=== PATIENT | female | born 1930 | race Caucasian/White ===

== ENCOUNTER 2016-09-02 16:35 | Observation (INO) | payer MEDICARE, OTHER ==
[2016-09-02] MEDS ORDERED: Ondansetron 4 MG/2 ML SDV IVPUSH ONE (16:50)
[2016-09-02] MEDS ORDERED: Sodium Chloride 0.9% 10 ML Syringe FLUSH PRN (16:56)
[2016-09-02 17:37] LABS: CHLORIDE,CL 107 mmol/L (98-107); SODIUM,NA 142 mmol/L (136-145)
[2016-09-02] MEDS ORDERED: cefTRIAXone 1 GM Vial IVPUSH ONE (18:38)
[2016-09-02] MEDS ORDERED: Ondansetron 4 MG/2 ML SDV IVPUSH PRN (20:21)
[2016-09-02] MEDS ORDERED: Sodium Chloride 0.9% 1,000 ML IV ONE (20:21)
[2016-09-02] MEDS: Sodium Chloride 0.9% 1,000 ML IV ONE ×2 (20:44→20:52)
[2016-09-03] MEDS ORDERED: Acetaminophen 325 MG Tab PO PRN (00:56)
--- NOTE | 2016-09-03 01:57 | ER ---
Date of Service: 09/02/2016 SUBJECTIVE: Mrs. Rose presents to the emergency room with complaints of dizziness and near syncope that started approximately 2:30 p.m. this afternoon. She states that she did become nauseated and did vomit as well. She was seen in the clinic by RONALD Neal, who subsequently had the patient brought to the emergency room for evaluation and treatment. The patient states that she was feeling a bit fatigued throughout the day today. She states that she is currently not experiencing any chest pain or shortness of breath. She is accompanied to the emergency room by her daughter. PAST MEDICAL HISTORY: 1. Frequent UTI. 2. Syncope. 3. Dementia. MEDICATIONS: 1. Acetaminophen 650 mg q. 4 hours. 2. Aspirin 81 mg daily. 3. Calcium plus D 1250 mg/200 mg per tablet once daily. 4. Vitamin D3 1000 units p.o. daily. 5. Multivitamin/mineral 1 daily. 6. Crestor 10 mg daily. 7. Vitamin E 400 units p.o. daily. 8. Triamcinolone cream 0.1% applied to affected area daily. 9. Prolia 60 mg subcutaneously once per month. ALLERGIES: Penicillin and codeine. REVIEW OF SYSTEMS: General: No fever or chills. HEENT: No sore throat, rhinorrhea, or congestion. Respiratory: No shortness breath. Cardiac: Denies any substernal chest pain. No jaw, arm, neck, or back pain. GI: Positive for nausea and vomiting. Denies any diarrhea. No melena, hematochezia, or hematemesis. : Denies any dysuria. Musculoskeletal: No myalgias or arthralgias. Neurologic: No fainting, blackouts, lightheadedness. PHYSICAL EXAMINATION: General: This is an 86-year-old female patient, who is in no acute distress. Vital Signs: Blood pressure is 120/56, pulse rate is 57, temperature is 36.5, respiratory rate is 16, O2 saturations 98% on room air. Skin: Warm, pink, and dry. HEENT. Head is normocephalic, atraumatic. Mouth, oral mucosa is moist. Lungs: Clear to auscultation. Heart: Regular rate and rhythm. Abdomen: Soft, nontender. There is no hepatosplenomegaly noted. There is no masses noted. Extremities: Without edema. Neurologic: She is alert, oriented, answers all questions appropriately. Her speech is fluent. Her gait is within normal limits. IMAGING: Her PA and lateral chest x-ray was obtained. There was no evidence of any acute infiltrate. Flat and upright abdominal series was obtained. There was no evidence of any acute pathology. LABORATORY DATA: WBCs 5.5, hemoglobin is 12.1, platelets are 184. Coags: PT is 10.1, INR is 0.9. Chemistry: Sodium is 142, potassium is 3.6, chloride is 107, bicarb is 27, BUN is 20, creatinine is 0.7. GFR is greater than 60. Glucose is 113, lactic acid is 1.1, calcium is 9.2, corrected calcium is 9.36, total bilirubin is 0.4, AST is 14, ALT is 15, alkaline phosphatase is 52, troponin is less than 0.017. C-reactive protein is less than 0.2, total protein is 7.2. Urinalysis reveals specific gravity of 1.020. PH is 7.5. She did have moderate occult blood, positive nitrates, and small leukocyte esterase and many bacteria on her urinalysis. EMERGENCY ROOM COURSE: IV access was established. She was given a liter of normal saline IV and Zofran 4 mg IV for her nausea and vomiting. She was also given 1 g of ceftriaxone IV. She remained stable under my care in the emergency room. ASSESSMENT: 1. Urinary tract infection. 2. Acute dehydration. 3. Near syncope. PLAN: The patient is going to be admitted on observation status. I did speak with Dr. Siddiqui regarding this patient and he felt that as though the patient could be admitted on observation and will re-evaluate in the morning. The patient identifies herself as a code level 1, but does wish to be intubated in the event that she experiences respiratory distress or failure. We will start her on a regular diet and I utilized sequential compression devices. We will continue ceftriaxone 1 g daily for her urinary tract infection. We will continue normal saline at 100 mL per hour and Zofran 4 mg every 8 hours as needed for nausea and vomiting. Vitals q.4 hours. This can be used as the patient's H and P. MWK: 09/03/2016 01:27:32 MODL: 09/03/2016 01:53:04 /[id number]
[2016-09-03 07:59] LABS: CHLORIDE,CL 109 mmol/L (98-107); SODIUM,NA 137 mmol/L (136-145)
[2016-09-03] MEDS ORDERED: Aspirin 81 MG Tab.EC PO SCH (08:00)
[2016-09-03] MEDS ORDERED: atorvaSTATin 40 MG Tab PO SCH (08:00)
[2016-09-03] MEDS ORDERED: Multivitamins with Iron/Calcium/Folic Acid/Minerals Tab PO SCH (08:00)
[2016-09-03] MEDS ORDERED: Cholecalciferol (Vitamin D3) 1,000 Unit Tab PO SCH (08:00)
[2016-09-03] MEDS ORDERED: Calcium Carbonate/Vitamin D3 1250 MG-200 Unit Tab PO SCH (08:00)
[2016-09-03] MEDS ORDERED: Non-Formulary Medication 1 Each (Rosuvastatin [Crestor] 10 MG) PO SCH (08:00)
[2016-09-03] MEDS ORDERED: Vitamin E (dl-alpha-tocopherol acetate) 400 Unit Cap PO SCH (08:00)
--- NOTE | 2016-09-03 08:24 | PCM.DCSUM1 ---
[id number] AM. HPI Initial Comments: Patient was brought to the emergency room from the clinic with complaints of near sycope, nausea and vomiting. Her workup showed her to have a urinary tract infection and she was admitted in observation status for IV antibiotics. Urine was positive for blood, nitrates and leukocytes. - Discharge Data Discharge Date: 09/03/16 Discharge Disposition: Home, Self-Care 01 Condition: Good - Discharge Diagnosis/Problem(s) (1) Dehydration symptoms SNOMED Code(s): 7514804 ICD Code: R63.8 - OTHER SYMPTOMS AND SIGNS CONCERNING FOOD AND FLUID INTAKE Status: Acute Priority: Low (2) Near syncope SNOMED Code(s): 588314809 ICD Code: R55 - SYNCOPE AND COLLAPSE Status: Acute Priority: Low (3) UTI (urinary tract infection) SNOMED Code(s): 03745117 ICD Code: N39.0 - URINARY TRACT INFECTION, SITE NOT SPECIFIED Status: Acute Priority: Medium Qualifiers: Urinary tract infection type: site unspecified Hematuria presence: with hematuria Qualified Code(s): N39.0 - Urinary tract infection, site not specified; R31.9 - Hematuria, unspecified - Patient Instructions Diet: Usual Diet as Tolerated, Drink 8-10+ Glasses/Day Notify Provider of: Fever, Increased Pain, Nausea and/or Vomiting - Discharge Plan Prescriptions/Med Rec: Nitrofurantoin Monohyd/M-Cryst [Macrobid 100 mg Capsule] 100 mg PO BID #10 capsule Home Medications: Home Meds Aspirin [Halfprin] 81 mg PO DAILY 12/14/13 [History] Multivitamin [Multivitamins] 1 tab PO DAILY 12/14/13 [History] Rosuvastatin [Crestor] 10 mg PO DAILY 12/14/13 [History] Triamcinolone Acetonide [Kenalog 0.1% Lotion] 1 applic TOP DAILY 12/14/13 [ History] Vitamin E 400 units PO DAILY 12/14/13 [History] Acetaminophen [Tylenol] 650 mg PO Q4H PRN #30 tablet 12/16/13 [Rx] Calcium Citrate/Vitamin D3 [Citracal-Vit D 250 MG-200] 1 each PO DAILY 09/02/16 [History] Cholecalciferol (Vitamin D3) [Vitamin D3] 1,000 unit PO DAILY 09/02/16 [History] Denosumab [Prolia] 60 mg SUBCUT ONETIME 09/02/16 [History] Nitrofurantoin Monohyd/M-Cryst [Macrobid 100 mg Capsule] 100 mg PO BID #10 capsule 09/03/16 [Rx] Patient Handouts: Urinary Tract Infection, Adult, [id number] Forms: ED Department Discharge Referrals: Reina Zimmer MD [Primary Care Provider] - - Discharge Summary/Plan Comment DC Time >30 min.: Yes Discharge Summary/Plan Comment: Follow up with your primary provider in 1 week to be sure the infection is resolved You need to be more hydrated, it may be beneficial to invest in a commode in your downstairs so that you don't need to worry about running upstairs If you have additional symptoms please see your primary provider I am sending you home with a prescription for macrobid. Take this orally 2 times a day for 5 days Please call with any questions or concerns - General Info Date of Service: 09/03/16 Functional Status: Reports: tolerating diet, urinating. Denies: new symptoms - Review of Systems General: Reports: No Symptoms HEENT: Reports: no symptoms Pulmonary: Reports: no symptoms Cardiovascular: Reports: No Symptoms Gastrointestinal: Reports: No symptoms Genitourinary: Reports: no symptoms Musculoskeletal: Reports: no symptoms Skin: Reports: no symptoms Neurological: Reports: No Symptoms Psychiatric: Reports: no symptoms - Patient Data Vitals - Most Recent: Last Vital Signs Temp 36.8 C 09/03/16 06:00 Pulse 54 L 09/03/16 06:00 Resp 9 L 09/03/16 06:00 BP 119/47 L 09/03/16 06:00 Pulse Ox 99 09/03/16 06:00 Weight - Most Recent: 56.109 kg I&O - Last 24 hours: Intake & Output 09/02/16 09/03/16 09/03/16 22:59 06:59 14:59 Intake Total 846 Output Total 600 Balance 246 Lab Results - Last 24 hrs: Laboratory Results - last 24 hr 09/03/16 09/03/16 Range/Units 07:29 07:29 WBC 5.6 (4.0-10.0) x10^3/uL RBC 3.47 L (4.00-5.50) x10^6/uL Hgb 10.8 L (12.0-16.0) g/dL Hct 30.8 L (33.0-47.0) % MCV 88.8 (78.0-93.0) fL MCH 31.1 (26.0-32.0) pg MCHC 35.1 (32.0-36.0) g/dL RDW Coeff of [place] 12.8 (10.0-15.0) % Plt Count 167 (130-400) x10^3/uL Neut % (Auto) 69.0 (50.0-80.0) % Lymph % (Auto) 22.3 L (25.0-50.0) % [place] % (Auto) 7.8 (2.0-11.0) % Eos % (Auto) 0.7 (0.0-4.0) % Baso % (Auto) 0.2 (0.2-1.2) % Sodium 137 (136-145) mmol/L Potassium 3.7 (3.5-5.1) mmol/L Chloride 109 H (98-107) mmol/L Carbon Dioxide 24 (21-32) mmol/L BUN 13 (7-18) mg/dL Creatinine 0.7 (0.55-1.02) mg/dL Est Cr Clr Drug Dosing 43.53 mL/min Estimated GFR (MDRD) > 60 Glucose 90 (74-106) mg/dL Calcium 8.2 L (8.5-10.1) mg/dL Corrected Calcium 8.92 (8.5-10.1) mg/dL Total Bilirubin 0.3 (0.2-1.0) mg/dL AST 14 L (15-37) U/L ALT 12 L (14-59) U/L Alkaline Phosphatase 45 L (46-116) U/L Troponin I < 0.017 (<=0.056) ng/mL Total Protein 6.0 L (6.4-8.2) g/dL Albumin 3.1 L (3.4-5.0) g/dL Globulin 2.9 Albumin/Globulin Ratio 1.07 Med Orders - Current: Current Medications Acetaminophen (Tylenol) 650 mg PO Q4H PRN PRN Reason: Pain Aspirin (Halfprin) 81 mg PO DAILY [facility] Last Admin: 09/03/16 07:32 Dose: 81 mg Atorvastatin Calcium (Lipitor) 40 mg PO DAILY [facility] Last Admin: 09/03/16 07:32 Dose: 40 mg Calcium Carbonate (Calcium Carbonate/Vitamin D 1250 Mg-200 Unit) 1 tab PO DAILY [facility] Last Admin: 09/03/16 07:32 Dose: 1 tab Cholecalciferol (Vitamin D3) 1,000 units PO DAILY [facility] Last Admin: 09/03/16 07:32 Dose: 1,000 units Multivitamins/Minerals (Thera M Plus) 1 tab PO DAILY [facility] Last Admin: 09/03/16 07:32 Dose: 1 tab Ondansetron HCl (Zofran) 4 mg IVPUSH Q8H PRN PRN Reason: Nausea Sodium Chloride (Saline Flush) 10 ml FLUSH ASDIRECTED PRN PRN Reason: Keep Vein Open Last Admin: 09/02/16 19:20 Dose: 10 ml Vitamin E (Vitamin E) 400 units PO DAILY [facility] Last Admin: 09/03/16 07:32 Dose: 400 units Discontinued Medications Ceftriaxone Sodium (Rocephin) 1 gm IVPUSH ONETIME ONE Stop: 09/02/16 18:39 Last Admin: 09/02/16 19:20 Dose: 1 gm Sodium Chloride (Normal Saline) 1,000 mls @ 1,000 mls/hr IV .BOLUS ONE Stop: 09/02/16 17:56 Last Admin: 09/02/16 20:52 Dose: 100 mls/hr Sodium Chloride (Normal Saline) 1,000 mls @ 100 mls/hr IV .BOLUS ONE Stop: 09/03/16 06:20 Last Admin: 09/02/16 20:52 Dose: 100 mls/hr Ondansetron HCl (Zofran) 4 mg IVPUSH ONETIME ONE Stop: 09/02/16 16:51 Last Admin: 09/02/16 16:55 Dose: 4 mg - Exam General: Reports: alert, oriented, cooperative, no acute distress HEENT: Reports: Pupils equal, Pupils reactive, EOMI Neck: Reports: supple Lungs: Reports: Clear to auscultation, Normal respiratory effort Cardiovascular: Reports: Regular Rate, Regular Rhythm Abdomen: Reports: bowel sounds present, soft, no tenderness, no distension Extremities: Reports: no edema Skin: Reports: warm, dry, intact Neurological: Reports: no new focal deficit Psy/Mental Status: Reports: alert, normal affect, normal mood *Q Meaningful Use (DIS) - VTE *Q VTE Criteria *Q: - Stroke *Q Stroke Criteria *Q: - AMI *Q AMI Criteria *Q:
[2016-09-03 09:44] VITALS: BP 137/57
== END 2016-09-03 10:30 | disposition home or self-care (01) ==
LOC: VM.ED 16:35 → VM.MS 18:41
PROVIDERS: ADMIT Physician Assistant; ATTEND Physician Assistant
DX: E86.0 Dehydration (principal); N39.0 Urinary tract infection, site not specified; F03.90 Unspecified dementia, unspecified severity, without behavioral disturbance, psychotic disturbance, mood disturbance, and anxiety; Z79.82 Long term (current) use of aspirin; Z79.899 Other long term (current) drug therapy; Z88.0 Allergy status to penicillin; Z88.5 Allergy status to narcotic agent
CPT/HCPCS: 36415; 74020; 80053; 81001; 83605; 84484; 85025; 85610; 86140; 87086; 87088; 87186; 93005; 96361; 96374; 96375; 99285; A9270; G0378; J0696; J2405; J7030; J7050; 99217; 99220

== ENCOUNTER 2018-05-26 13:51 | Observation (INO) | payer MEDICARE, OTHER ==
[2018-05-26] MEDS ORDERED: Sodium Chloride 0.9% 1,000 ML IV ONE (13:53)
[2018-05-26] MEDS ORDERED: cefTRIAXone 1 GM Vial IVPUSH ONE (13:58)
[2018-05-26] MEDS ORDERED: Ondansetron 4 MG/2 ML SDV IVPUSH ONE (13:59)
--- NOTE | 2018-05-26 14:08 | EDM.PDOC ---
ED HPI GENERAL MEDICAL PROBLEM - General Chief Complaint: General Stated Complaint: WEAK, DEHYDRATED, NO APPITITE Time Seen by Provider: 05/26/18 13:51 Source of Information: Reports: Patient, EMS, EMS Notes Reviewed, Family, RN History Limitations: Reports: No Limitations - History of Present Illness INITIAL COMMENTS - FREE TEXT/NARRATIVE: Patient comes in the emergency department with EMS with complaints of weakness and nausea. Patient was just started on Aricept and Bactrim yesterday. Since starting the medication she's had extreme nausea and vomiting. She is unable to keep any fluids or food down. She states that she still has her UTI symptoms. Any fever and chills. Quality: Reports: Other Severity: Moderate Improves with: Reports: None Worsens with: Reports: None Associated Symptoms: Reports: No Other Symptoms - Related Data Allergies Allergy/AdvReac Type Severity Reaction Status Date / Time codeine Allergy Cannot Verified 05/26/18 14:49 Remember Penicillins Allergy Hives Verified 05/26/18 14:49 Home Meds: Home Meds Aspirin [Halfprin] 81 mg PO DAILY 12/14/13 [History] Multivitamin [Multivitamins] 1 tab PO DAILY 12/14/13 [History] Rosuvastatin [Crestor] 10 mg PO DAILY 12/14/13 [History] Acetaminophen [Tylenol] 650 mg PO Q4H PRN #30 tablet 12/16/13 [Rx] Calcium Citrate/Vitamin D3 [Citracal-Vit D 250 MG-200] 1 each PO DAILY 09/02/16 [History] Cholecalciferol (Vitamin D3) [Vitamin D3] 1,000 unit PO DAILY 09/02/16 [History] Denosumab [Prolia] 60 mg SUBCUT ONETIME 09/02/16 [History] Albuterol Sulfate [Albuterol Sulfate Hfa] 2 puff IH Q4H PRN 05/26/18 [History] Donepezil HCl [Aricept] 5 mg PO DAILY 05/26/18 [History] Sulfamethoxazole/Trimethoprim [Bactrim 400-80 MG] 1 each PO BID 05/26/18 [ History] Past Medical History Cardiovascular History: Reports: Syncope Genitourinary History: Reports: Other (See Below) Other Genitourinary History: UTI Musculoskeletal History: Reports: Other (See Below) Other Musculoskeletal History: Left wrist fracture history Neurological History: Reports: Other (See Below) Other Neuro History: dementia Social & Family History - Living Situation & Occupation Living situation: Reports: Alone Occupation: Retired ED ROS GENERAL - Review of Systems Review Of Systems: See Below Constitutional: Reports: Malaise, Weakness, Fatigue HEENT: Reports: No Symptoms Respiratory: Reports: No Symptoms Cardiovascular: Reports: No Symptoms Endocrine: Reports: No Symptoms GI/Abdominal: Reports: Abdominal Pain, Nausea, Vomiting : Reports: Dysuria, Frequency, Pain, Urgency Musculoskeletal: Reports: No Symptoms Skin: Reports: No Symptoms Neurological: Reports: No Symptoms Psychiatric: Reports: No Symptoms Hematologic/Lymphatic: Reports: No Symptoms Immunologic: Reports: No Symptoms ED EXAM, GENERAL - Physical Exam Exam: See Below Exam Limited By: No Limitations General Appearance: Alert, WD/WN, No Apparent Distress Head: Atraumatic, Normocephalic Neck: Normal Inspection, Supple, Non-Tender, Full Range of Motion Respiratory/Chest: No Respiratory Distress, Lungs Clear, Normal Breath Sounds, No Accessory Muscle Use, Chest Non-Tender Cardiovascular: Normal Peripheral Pulses, Regular Rate, Rhythm, No Edema GI/Abdominal: Normal Bowel Sounds, Soft, No Organomegaly, No Distention, No Abnormal Bruit, No Mass, Pelvis Stable, Tender Back Exam: Normal Inspection, Full Range of Motion Extremities: Normal Inspection, Normal Range of Motion, Normal Capillary Refill Neurological: Alert, Oriented Psychiatric: Normal Affect, Normal Mood Skin Exam: Warm, Dry, Intact, Normal Color, No Rash Course - Vital Signs Last Recorded V/S: Last Vital Signs Temp 36.4 C 05/26/18 14:00 Pulse 79 05/26/18 15:00 Resp 16 05/26/18 15:00 BP 156/78 H 05/26/18 15:53 Pulse Ox 98 05/26/18 15:00 - Orders/Labs/Meds Labs: Laboratory Tests 05/26/18 05/26/18 05/26/18 Range/Units 15:49 15:49 15:49 WBC 8.3 (4.0-10.0) x10^3/uL RBC 4.27 (4.00-5.50) x10^6/uL Hgb 13.1 D (12.0-16.0) g/dL Hct 38.6 (33.0-47.0) % MCV 90.4 (78.0-93.0) fL MCH 30.7 (26.0-32.0) pg MCHC 33.9 (32.0-36.0) g/dL RDW Coeff of [place] 12.9 (10.0-15.0) % Plt Count 207 (130-400) x10^3/uL Neut % (Auto) 87.6 H (50.0-80.0) % Lymph % (Auto) 7.8 L (25.0-50.0) % [place] % (Auto) 4.3 (2.0-11.0) % Eos % (Auto) 0.1 (0.0-4.0) % Baso % (Auto) 0.2 (0.2-1.2) % Sodium 141 (136-145) mmol/L Potassium 3.7 (3.5-5.1) mmol/L Chloride 105 (98-107) mmol/L Carbon Dioxide 24 (21-32) mmol/L Anion Gap 15.7 (10-20) mmol/L BUN 14 (7-18) mg/dL Creatinine 0.8 (0.55-1.02) mg/dL Est Cr Clr Drug Dosing 37.38 mL/min Estimated GFR (MDRD) > 60 Glucose 103 (74-106) mg/dL Lactic Acid 1.3 (0.4-2.0) mmol/L Calcium 8.5 (8.5-10.1) mg/dL Corrected Calcium 8.90 (8.5-10.1) mg/dL Total Bilirubin 0.4 (0.2-1.0) mg/dL AST 15 (15-37) U/L ALT 14 (14-59) U/L Alkaline Phosphatase 65 (46-116) U/L Total Protein 6.9 (6.4-8.2) g/dL Albumin 3.5 (3.4-5.0) g/dL Globulin 3.4 Albumin/Globulin Ratio 1.03 Meds: Medications Discontinued Medications Generic Name Dose Route Start Last Admin Trade Name Freq PRN Reason Stop Dose Admin Ceftriaxone Sodium 1 gm 05/26/18 13:58 05/26/18 14:10 Rocephin IVPUSH 05/26/18 13:59 1 gm ONETIME ONE Administration Sodium Chloride 1,000 mls @ 1,000 mls/hr 05/26/18 13:53 05/26/18 13:51 Normal Saline IV 05/26/18 14:52 1,000 mls/hr ONETIME ONE Administration Metoclopramide HCl 5 mg 05/26/18 15:26 05/26/18 15:36 Reglan IVPUSH 05/26/18 15:27 5 mg ONETIME ONE Administration Ondansetron HCl 4 mg 05/26/18 13:59 05/26/18 14:06 Zofran IVPUSH 05/26/18 14:00 4 mg ONETIME ONE Administration Departure - Departure Time of Disposition: 16:50 Disposition: Refer to Observation Condition: Good Clinical Impression: Weakness, Medication intolerance Nausea & vomiting Qualifiers: Vomiting type: unspecified Vomiting Intractability: unspecified Qualified Code( s): R11.2 - Nausea with vomiting, unspecified UTI (urinary tract infection) Qualifiers: Urinary tract infection type: site unspecified Hematuria presence: with hematuria Qualified Code(s): N39.0 - Urinary tract infection, site not specified - Discharge Information *PRESCRIPTION DRUG MONITORING PROGRAM REVIEWED*: Not Applicable *COPY OF PRESCRIPTION DRUG MONITORING REPORT IN PATIENT DEXTER: Not Applicable Referrals: Reina Zimmer MD [Primary Care Provider] - Forms: ED Department Discharge - Problem List Review Problem List Initiated/Reviewed/Updated: Yes - Assessment/Plan Admission H&P: Please use this note as an admission H&P Assessment:: 1. weak 2. nausea 3. vomiting related to drug interaction Plan: 1. Labs completed in the ER. Results reviewed patient and family 2. IV and fluids given in the ER 3. Rocephin given in ER. Pt has been given Rocephin in the past and has not had any issues 4. Pt continues to have nausea and feel week despite fluids and anti nausea medications. She currently does not feel safe to go home with her current weakness. 1# Nausea -Pt continue to order PRN antinausea medications -Will have continuous IV fluids for hydration if unable to eat or drink 2# UTI -Stop Bactrim for the pt was severely nauseated and vomiting since starting the medication -Rocephin given in ER. Will re-evaluate in the Am regarding for adjunct faculty for medical terminology medication management -Requesting medical records for UTI completed in clinic to look at sensitivity 3# weakness -continue fluids to help with the nausea - will have staff assisting pt with ambulation until she feels safe and secure with mobility Labs will be redrawn in the am. Will order pain medication as needed for any pain that may arise. Will re-evaluate in the am. All questions and concerns were addressed prior to admit. Pt will be admitted to observation.
[2018-05-26] MEDS ORDERED: Metoclopramide 10 MG/2 ML SDV IVPUSH ONE (15:26)
[2018-05-26 16:19] LABS: CHLORIDE,CL 105 mmol/L (98-107); SODIUM,NA 141 mmol/L (136-145)
[2018-05-26 16:36] LABS: ANION GAP 15.7 mmol/L (10-20)
[2018-05-26] MEDS: Sodium Chloride 0.9% 1,000 ML IV SCH (21:58)
[2018-05-27] MEDS: Aspirin 81 MG Tab.EC PO SCH (07:34)
[2018-05-27] MEDS: Donepezil 5 MG Tab PO SCH (07:34)
[2018-05-27] MEDS: atorvaSTATin 40 MG Tab PO SCH (07:34)
[2018-05-27 08:09] LABS: CHLORIDE,CL 110 mmol/L (98-107); SODIUM,NA 144 mmol/L (136-145)
[2018-05-27 08:16] LABS: ANION GAP 14.4 mmol/L (10-20)
[2018-05-27] MEDS: Sodium Chloride 0.9% 1,000 ML IV SCH ×2 (10:15→16:58)
[2018-05-27] MEDS: Ondansetron 4 MG/2 ML SDV IV PRN ×2 (10:17→17:07)
[2018-05-27] MEDS ORDERED: cefTRIAXone 1 GM Vial IVPUSH ONE (11:47)
--- NOTE | 2018-05-27 11:51 | PCM.PN ---
- General Info Date of Service: 05/27/18 Subjective Update: Patient came in the emergency department with EMS with complaints of weakness and nausea. Patient was just started on Aricept and Bactrim yesterday. Since starting the medication she's had extreme nausea and vomiting. She is unable to keep any fluids or food down. She states that she still has her UTI symptoms. Any fever and chills. She did not feel much better after fluids and medication. Pt did not feel safe and stable to go home. Pt was admitted for observation for nausea, weakness, and UTI. Functional Status: Reports: Pain Controlled, Ambulating. Denies: Tolerating Diet - Review of Systems General: Reports: Appetite HEENT: Reports: No Symptoms Pulmonary: Reports: No Symptoms Cardiovascular: Reports: No Symptoms Gastrointestinal: Reports: No Symptoms Genitourinary: Reports: No Symptoms Musculoskeletal: Reports: No Symptoms Skin: Reports: No Symptoms Neurological: Reports: No Symptoms Psychiatric: Reports: No Symptoms - Patient Data Vitals - Most Recent: Last Vital Signs Temp 36.4 C 05/27/18 10:00 Pulse 67 05/27/18 10:00 Resp 16 05/27/18 06:00 BP 115/63 05/27/18 10:00 Pulse Ox 97 05/27/18 10:00 Weight - Most Recent: 51.528 kg I&O - Last 24 Hours: Intake & Output 05/26/18 05/27/18 05/27/18 22:59 06:59 14:59 Intake Total 1239 180 Output Total 1100 Balance 139 180 Lab Results Last 24 Hours: Laboratory Results - last 24 hr 05/26/18 05/26/18 05/26/18 Range/Units 15:49 15:49 15:49 WBC 8.3 (4.0-10.0) x10^3/uL RBC 4.27 (4.00-5.50) x10^6/uL Hgb 13.1 D (12.0-16.0) g/dL Hct 38.6 (33.0-47.0) % MCV 90.4 (78.0-93.0) fL MCH 30.7 (26.0-32.0) pg MCHC 33.9 (32.0-36.0) g/dL RDW Coeff of [place] 12.9 (10.0-15.0) % Plt Count 207 (130-400) x10^3/uL Neut % (Auto) 87.6 H (50.0-80.0) % Lymph % (Auto) 7.8 L (25.0-50.0) % [place] % (Auto) 4.3 (2.0-11.0) % Eos % (Auto) 0.1 (0.0-4.0) % Baso % (Auto) 0.2 (0.2-1.2) % Sodium 141 (136-145) mmol/L Potassium 3.7 (3.5-5.1) mmol/L Chloride 105 (98-107) mmol/L Carbon Dioxide 24 (21-32) mmol/L Anion Gap 15.7 (10-20) mmol/L BUN 14 (7-18) mg/dL Creatinine 0.8 (0.55-1.02) mg/dL Est Cr Clr Drug Dosing 37.38 mL/min Estimated GFR (MDRD) > 60 Glucose 103 (74-106) mg/dL Lactic Acid 1.3 (0.4-2.0) mmol/L Calcium 8.5 (8.5-10.1) mg/dL Corrected Calcium 8.90 (8.5-10.1) mg/dL Total Bilirubin 0.4 (0.2-1.0) mg/dL AST 15 (15-37) U/L ALT 14 (14-59) U/L Alkaline Phosphatase 65 (46-116) U/L Total Protein 6.9 (6.4-8.2) g/dL Albumin 3.5 (3.4-5.0) g/dL Globulin 3.4 Albumin/Globulin Ratio 1.03 05/27/18 05/27/18 Range/Units 07:40 07:40 WBC 5.4 (4.0-10.0) x10^3/uL RBC 3.84 L (4.00-5.50) x10^6/uL Hgb 11.8 L (12.0-16.0) g/dL Hct 35.2 (33.0-47.0) % MCV 91.7 (78.0-93.0) fL MCH 30.7 (26.0-32.0) pg MCHC 33.5 (32.0-36.0) g/dL RDW Coeff of [place] 12.9 (10.0-15.0) % Plt Count 194 (130-400) x10^3/uL Neut % (Auto) 68.5 (50.0-80.0) % Lymph % (Auto) 23.5 L (25.0-50.0) % [place] % (Auto) 7.2 (2.0-11.0) % Eos % (Auto) 0.4 (0.0-4.0) % Baso % (Auto) 0.4 (0.2-1.2) % Sodium 144 (136-145) mmol/L Potassium 3.4 L (3.5-5.1) mmol/L Chloride 110 H (98-107) mmol/L Carbon Dioxide 23 (21-32) mmol/L Anion Gap 14.4 (10-20) mmol/L BUN 12 (7-18) mg/dL Creatinine 0.7 (0.55-1.02) mg/dL Est Cr Clr Drug Dosing 42.73 mL/min Estimated GFR (MDRD) > 60 Glucose 84 (74-106) mg/dL Lactic Acid (0.4-2.0) mmol/L Calcium 8.1 L (8.5-10.1) mg/dL Corrected Calcium (8.5-10.1) mg/dL Total Bilirubin (0.2-1.0) mg/dL AST (15-37) U/L ALT (14-59) U/L Alkaline Phosphatase (46-116) U/L Total Protein (6.4-8.2) g/dL Albumin (3.4-5.0) g/dL Globulin Albumin/Globulin Ratio Med Orders - Current: Current Medications Aspirin (Halfprin) 81 mg PO DAILY [facility] Last Admin: 05/27/18 07:34 Dose: 81 mg Atorvastatin Calcium (Lipitor) 40 mg PO DAILY [facility] Last Admin: 05/27/18 07:34 Dose: 40 mg Donepezil HCl (Aricept) 5 mg PO DAILY [facility] Last Admin: 05/27/18 07:34 Dose: 5 mg Sodium Chloride (Normal Saline) 1,000 mls @ 150 mls/hr IV ASDIRECTED [facility] Last Admin: 05/27/18 10:15 Dose: 150 mls/hr Ondansetron HCl (Zofran) 4 mg IV Q4H PRN PRN Reason: Nausea/Vomiting Last Admin: 05/27/18 10:17 Dose: 4 mg Discontinued Medications Ceftriaxone Sodium (Rocephin) 1 gm IVPUSH ONETIME ONE Stop: 05/26/18 13:59 Last Admin: 05/26/18 14:10 Dose: 1 gm Sodium Chloride (Normal Saline) 1,000 mls @ 1,000 mls/hr IV ONETIME ONE Stop: 05/26/18 14:52 Last Admin: 05/26/18 13:51 Dose: 1,000 mls/hr Metoclopramide HCl (Reglan) 5 mg IVPUSH ONETIME ONE Stop: 05/26/18 15:27 Last Admin: 05/26/18 15:36 Dose: 5 mg Ondansetron HCl (Zofran) 4 mg IVPUSH ONETIME ONE Stop: 05/26/18 14:00 Last Admin: 05/26/18 14:06 Dose: 4 mg - Exam General: Alert, Oriented, Cooperative, No Acute Distress HEENT: Pupils Equal, Pupils Reactive, EOMI, Mucous Membr. Moist/[place] Neck: Supple Lungs: Clear to Auscultation, Normal Respiratory Effort Cardiovascular: Regular Rate, Regular Rhythm GI/Abdominal Exam: Normal Bowel Sounds, Soft, Non-Tender, No Distention Back Exam: Normal Inspection, Full Range of Motion Extremities: Normal Inspection, Normal Range of Motion, Non-Tender, No Pedal Edema Wound/Incisions: Healing Well Neurological: No New Focal Deficit Psy/Mental Status: Alert, Normal Affect, Normal Mood - Problem List & Annotations (1) Medication intolerance SNOMED Code(s): 30503754 Code(s): Z78.9 - OTHER SPECIFIED HEALTH STATUS Status: Acute Current Visit: Yes (2) Nausea & vomiting SNOMED Code(s): 29874272 Code(s): R11.2 - NAUSEA WITH VOMITING, UNSPECIFIED Status: Acute Current Visit: Yes Qualifiers: Vomiting type: unspecified Vomiting Intractability: unspecified Qualified Code(s): R11.2 - Nausea with vomiting, unspecified (3) UTI (urinary tract infection) SNOMED Code(s): 96266024 Code(s): N39.0 - URINARY TRACT INFECTION, SITE NOT SPECIFIED Status: Acute Priority: Medium Current Visit: Yes Qualifiers: Urinary tract infection type: site unspecified Hematuria presence: with hematuria Qualified Code(s): N39.0 - Urinary tract infection, site not specified; R31.9 - Hematuria, unspecified (4) Weakness SNOMED Code(s): 86617114 Code(s): R53.1 - WEAKNESS Status: Acute Current Visit: Yes - Problem List Review Problem List Initiated/Reviewed/Updated: Yes - My Orders Last 24 Hours: My Active Orders 05/26/18 16:49 Admission Status [Patient Status] [ADT] Routine 05/26/18 18:07 Ambulate [RC] 08,20 Oxygen Therapy [RC] .PRN VTE/DVT Education [RC] .PRN Vital Signs [RC] 02,06,10,14,18,22 Ondansetron [Zofran] 4 mg IV Q4H PRN Resuscitation Status Routine 05/26/18 18:15 Sodium Chloride 0.9% [Normal Saline] 1,000 ml IV ASDIRECTED 05/26/18 Dinner Regular Diet [DIET] 05/27/18 08:00 Aspirin [Halfprin] 81 mg PO DAILY Donepezil [Aricept] 5 mg PO DAILY atorvaSTATin [Lipitor] 40 mg PO DAILY - Assessment Assessment:: 1# Nausea -Pt continue to order PRN antinausea medications -Will have continuous IV fluids for hydration if unable to eat or drink 2# UTI -Stop Bactrim for the pt was severely nauseated and vomiting since starting the medication -Rocephin every 24 hours. -Requesting medical records for UTI completed in clinic to look at sensitivity 3# weakness -continue fluids to help with the nausea - will have staff assisting pt with ambulation until she feels safe and secure with mobility - Plan Plan:: 1. The patient had an uneventful night however, this am she became flush at breakfast time and nauseated. Anti nausea medications were given. Pt continues to feel nauseated but has not vomited she does not want to eat lunch for she is nervous she may vomit. 2. Will continue to monitor status, give fluids, IV antibiotics. 3. Will re-evaluate pt's condition in the morning and anticipate discharge if she can tolerate oral intake. 4. Urine culture is finalized and is sensitive to Rocephin. Pt has tolerated it in the past and did well with it yesterday. Will continue to use IV as long as pt is nauseated. Urine culture is sensitive to Amoxicillin/clavulanate, ampicillin, Cefazolin, gentamicin, nitrofurantoin, tobramycin and Bactrim. She is allergic to penicillins and had an intolerance to Bactrim. 5. All questions and concerns addressed.
[2018-05-28] MEDS: Sodium Chloride 0.9% 1,000 ML IV SCH (00:18)
[2018-05-28 06:06] VITALS: BP 137/68
[2018-05-28 07:22] LABS: CHLORIDE,CL 112 mmol/L (98-107); SODIUM,NA 144 mmol/L (136-145)
[2018-05-28] MEDS: Donepezil 5 MG Tab PO SCH (07:40)
[2018-05-28] MEDS: Aspirin 81 MG Tab.EC PO SCH (07:40)
[2018-05-28] MEDS: atorvaSTATin 40 MG Tab PO SCH (07:40)
[2018-05-28] MEDS ORDERED: Potassium Chloride 20 MEQ Tab.ER PO ONE (07:46)
--- NOTE | 2018-05-28 07:49 | PCM.DCSUM1 ---
Discharge Summary - Hospital Course HPI Initial Comments: Patient comes in the emergency department 2 days ago via EMS with complaints of weakness and nausea. Patient was just started on Aricept and Bactrim the day before. Since starting the medication she's had extreme nausea and vomiting. She is unable to keep any fluids or food down. She states that she still has her UTI symptoms. Any fever and chills. She have not had any abdominal pain. No focal neurological deficits. No issues with SOB or chest pain. Diagnosis: Stroke: No Modified Manteno Scale: No Symptoms at All Modified Manteno Scale Score: 0 - Discharge Data Discharge Date: 05/28/18 Discharge Disposition: Home, Self-Care 01 Condition: Good - Discharge Diagnosis/Problem(s) (1) UTI (urinary tract infection) SNOMED Code(s): 63599223 ICD Code: N39.0 - URINARY TRACT INFECTION, SITE NOT SPECIFIED Status: Acute Priority: Medium Current Visit: Yes Onset Date: ~05/26/18 Qualifiers: Urinary tract infection type: site unspecified Hematuria presence: with hematuria Qualified Code(s): N39.0 - Urinary tract infection, site not specified; R31.9 - Hematuria, unspecified (2) Nausea & vomiting SNOMED Code(s): 11850142 ICD Code: R11.2 - NAUSEA WITH VOMITING, UNSPECIFIED Status: Resolved Current Visit: Yes Qualifiers: Vomiting type: unspecified Vomiting Intractability: unspecified Qualified Code(s): R11.2 - Nausea with vomiting, unspecified (3) Weakness SNOMED Code(s): 79044884 ICD Code: R53.1 - WEAKNESS Status: Resolved Current Visit: Yes - Patient Summary/Data Operative Procedure(s) Performed: None Labs Pending at D/C: None Recommended Follow-up Testing/Procedures: Repeat UA after abx therapy is completed Hospital Course: Patient's observation stay was uneventful. She did have considerable nausea the first couple days which was well controlled with IV antiemetics. Thought is the Aricept/Bactrim combo may have had significant contribution to her nausea. She never did vomit. No abdominal or pelvic pain. Vitals remained stable and afebrile. Patient able to tolerate regular diet this AM without any issues. Urinating ok. - Patient Instructions Diet: Regular Diet as Tolerated Activity: Rest and Relax Today Driving: May Drive Today Showering/Bathing: May Shower Notify Provider of: Fever, Nausea and/or Vomiting - Discharge Plan *PRESCRIPTION DRUG MONITORING PROGRAM REVIEWED*: Not Applicable *COPY OF PRESCRIPTION DRUG MONITORING REPORT IN PATIENT DEXTER: Not Applicable Prescriptions/Med Rec: Nitrofurantoin Monohyd/M-Cryst [Macrobid 100 mg Capsule] 100 mg PO BID 7 Days # 14 capsule Home Medications: Home Meds Aspirin [Halfprin] 81 mg PO DAILY 12/14/13 [History] Multivitamin [Multivitamins] 1 tab PO DAILY 12/14/13 [History] Rosuvastatin [Crestor] 10 mg PO DAILY 12/14/13 [History] Acetaminophen [Tylenol] 650 mg PO Q4H PRN #30 tablet 12/16/13 [Rx] Calcium Citrate/Vitamin D3 [Citracal-Vit D 250 MG-200] 1 each PO DAILY 09/02/16 [History] Cholecalciferol (Vitamin D3) [Vitamin D3] 1,000 unit PO DAILY 09/02/16 [History] Denosumab [Prolia] 60 mg SUBCUT ONETIME 09/02/16 [History] Albuterol Sulfate [Albuterol Sulfate Hfa] 2 puff IH Q4H PRN 05/26/18 [History] Donepezil HCl [Aricept] 5 mg PO DAILY 05/26/18 [History] Nitrofurantoin Monohyd/M-Cryst [Macrobid 100 mg Capsule] 100 mg PO BID 7 Days # 14 capsule 05/28/18 [Rx] Oxygen Therapy Mode: Room Air Patient Handouts: Urinary Tract Infection, Adult Referrals: Reina Zimmer MD [Primary Care Provider] - - Discharge Summary/Plan Comment DC Time >30 min.: No Discharge Summary/Plan Comment: Patient will be discharge home today. Will start Macrobid per urine sensitivity. No changes with other medications. Continue the same. Would like patient to follow up with Dr. Zimmer in one week for a post hospital recheck. - General Info Date of Service: 05/28/18 Admission Dx/Problem (Free Text: UTI Weakness Nausea Bactrim intolerance Subjective Update: Patient came in the emergency department with EMS with complaints of weakness and nausea. Patient was just started on Aricept and Bactrim yesterday. Since starting the medication she's had extreme nausea and vomiting. She is unable to keep any fluids or food down. She states that she still has her UTI symptoms. Any fever and chills. She did not feel much better after fluids and medication. Pt did not feel safe and stable to go home. Pt was admitted for observation for nausea, weakness, and UTI. Functional Status: Reports: Pain Controlled, Tolerating Diet, Ambulating, Urinating. Denies: New Symptoms Numeric/FACES Score: 0 - Review of Systems General: Denies: Fever, Chills Pulmonary: Denies: Shortness of Breath, Cough Cardiovascular: Denies: Chest Pain, Palpitations Gastrointestinal: Denies: Abdominal Pain, Nausea, Vomiting Skin: Reports: No Symptoms Neurological: Reports: No Symptoms - Patient Data Vitals - Most Recent: Last Vital Signs Temp 36.4 C 05/28/18 06:00 Pulse 55 L 05/28/18 06:00 Resp 16 05/28/18 06:00 BP 137/68 05/28/18 06:00 Pulse Ox 99 05/28/18 06:00 Weight - Most Recent: 52.163 kg I&O - Last 24 hours: Intake & Output 05/27/18 05/28/18 05/28/18 22:59 06:59 14:59 Intake Total 1111 1575 Output Total 800 1100 Balance 311 475 Lab Results - Last 24 hrs: Laboratory Results - last 24 hr 05/27/18 05/27/18 05/28/18 Range/Units 07:40 07:40 06:24 WBC 5.4 4.3 (4.0-10.0) x10^3/uL RBC 3.84 L 3.60 L (4.00-5.50) x10^6/uL Hgb 11.8 L 11.1 L (12.0-16.0) g/dL Hct 35.2 33.2 (33.0-47.0) % MCV 91.7 92.2 (78.0-93.0) fL MCH 30.7 30.8 (26.0-32.0) pg MCHC 33.5 33.4 (32.0-36.0) g/dL RDW Coeff of [place] 12.9 13.1 (10.0-15.0) % Plt Count 194 176 (130-400) x10^3/uL Neut % (Auto) 68.5 63.7 (50.0-80.0) % Lymph % (Auto) 23.5 L 27.2 (25.0-50.0) % [place] % (Auto) 7.2 7.2 (2.0-11.0) % Eos % (Auto) 0.4 1.4 (0.0-4.0) % Baso % (Auto) 0.4 0.5 (0.2-1.2) % Sodium 144 (136-145) mmol/L Potassium 3.4 L (3.5-5.1) mmol/L Chloride 110 H (98-107) mmol/L Carbon Dioxide 23 (21-32) mmol/L Anion Gap 14.4 (10-20) mmol/L BUN 12 (7-18) mg/dL Creatinine 0.7 (0.55-1.02) mg/dL Est Cr Clr Drug Dosing 42.73 mL/min Estimated GFR (MDRD) > 60 Glucose 84 (74-106) mg/dL Calcium 8.1 L (8.5-10.1) mg/dL Corrected Calcium (8.5-10.1) mg/dL Total Bilirubin (0.2-1.0) mg/dL AST (15-37) U/L ALT (14-59) U/L Alkaline Phosphatase (46-116) U/L Total Protein (6.4-8.2) g/dL Albumin (3.4-5.0) g/dL Globulin Albumin/Globulin Ratio 05/28/18 Range/Units 06:24 WBC (4.0-10.0) x10^3/uL RBC (4.00-5.50) x10^6/uL Hgb (12.0-16.0) g/dL Hct (33.0-47.0) % MCV (78.0-93.0) fL MCH (26.0-32.0) pg MCHC (32.0-36.0) g/dL RDW Coeff of [place] (10.0-15.0) % Plt Count (130-400) x10^3/uL Neut % (Auto) (50.0-80.0) % Lymph % (Auto) (25.0-50.0) % [place] % (Auto) (2.0-11.0) % Eos % (Auto) (0.0-4.0) % Baso % (Auto) (0.2-1.2) % Sodium 144 (136-145) mmol/L Potassium 3.0 L (3.5-5.1) mmol/L Chloride 112 H (98-107) mmol/L Carbon Dioxide 22 (21-32) mmol/L Anion Gap 13.0 (10-20) mmol/L BUN 9 (7-18) mg/dL Creatinine 0.6 (0.55-1.02) mg/dL Est Cr Clr Drug Dosing 49.85 mL/min Estimated GFR (MDRD) > 60 Glucose 81 (74-106) mg/dL Calcium 7.6 L (8.5-10.1) mg/dL Corrected Calcium 8.56 (8.5-10.1) mg/dL Total Bilirubin 0.4 (0.2-1.0) mg/dL AST 19 (15-37) U/L ALT 15 (14-59) U/L Alkaline Phosphatase 51 (46-116) U/L Total Protein 5.6 L (6.4-8.2) g/dL Albumin 2.8 L (3.4-5.0) g/dL Globulin 2.8 Albumin/Globulin Ratio 1.00 Med Orders - Current: Current Medications Aspirin (Halfprin) 81 mg PO DAILY [facility] Last Admin: 05/28/18 07:40 Dose: 81 mg Atorvastatin Calcium (Lipitor) 40 mg PO DAILY [facility] Last Admin: 05/28/18 07:40 Dose: 40 mg Donepezil HCl (Aricept) 5 mg PO DAILY [facility] Last Admin: 05/28/18 07:40 Dose: 5 mg Sodium Chloride (Normal Saline) 1,000 mls @ 150 mls/hr IV ASDIRECTED [facility] Last Admin: 05/28/18 00:18 Dose: 150 mls/hr Ondansetron HCl (Zofran) 4 mg IV Q4H PRN PRN Reason: Nausea/Vomiting Last Admin: 05/27/18 17:07 Dose: 4 mg Potassium Chloride (Klor-Con M20) 40 meq PO ONETIME ONE Stop: 05/28/18 07:47 Discontinued Medications Ceftriaxone Sodium (Rocephin) 1 gm IVPUSH ONETIME ONE Stop: 05/26/18 13:59 Last Admin: 05/26/18 14:10 Dose: 1 gm Ceftriaxone Sodium (Rocephin) 1 gm IVPUSH ONETIME ONE Stop: 05/27/18 11:48 Last Admin: 05/27/18 12:13 Dose: 1 gm Sodium Chloride (Normal Saline) 1,000 mls @ 1,000 mls/hr IV ONETIME ONE Stop: 05/26/18 14:52 Last Admin: 05/26/18 13:51 Dose: 1,000 mls/hr Metoclopramide HCl (Reglan) 5 mg IVPUSH ONETIME ONE Stop: 05/26/18 15:27 Last Admin: 05/26/18 15:36 Dose: 5 mg Ondansetron HCl (Zofran) 4 mg IVPUSH ONETIME ONE Stop: 05/26/18 14:00 Last Admin: 05/26/18 14:06 Dose: 4 mg - Exam Quality Assessment: Denies: Skin Breakdown General: Reports: Alert, Oriented, Cooperative, No Acute Distress Lungs: Reports: Clear to Auscultation, Normal Respiratory Effort Cardiovascular: Reports: Regular Rate, Regular Rhythm GI/Abdominal Exam: Normal Bowel Sounds, Soft, Non-Tender Skin: Reports: Warm, Dry, Intact Neurological: Reports: No New Focal Deficit
== END 2018-05-28 10:20 | disposition home or self-care (01) ==
LOC: VM.ED 13:51 → VM.MS 16:49
PROVIDERS: ADMIT Nurse Practitioner; ATTEND Nurse Practitioner
DX: R11.2 Nausea with vomiting, unspecified (principal); T37.0X5A Adverse effect of sulfonamides, initial encounter; N39.0 Urinary tract infection, site not specified; R31.9 Hematuria, unspecified; R53.1 Weakness; Z79.82 Long term (current) use of aspirin; Z79.899 Other long term (current) drug therapy; Z88.0 Allergy status to penicillin; Z88.1 Allergy status to other antibiotic agents
CPT/HCPCS: 36415; 80048; 80053; 83605; 85025; 96361; 96374; 96375; 96376; 99284-25; A9270-GY; G0378; J0696; J2405; J2765; J7030

== ENCOUNTER 2018-06-03 12:00 | Inpatient (IN) | payer MEDICARE, OTHER ==
[2018-06-03] MEDS ORDERED: Sodium Chloride 0.9% 10 ML Syringe FLUSH PRN (12:05)
[2018-06-03 13:08] LABS: CHLORIDE,CL 99 mmol/L (98-107); SODIUM,NA 137 mmol/L (136-145)
[2018-06-03 13:09] LABS: ANION GAP 15.4 mmol/L (10-20)
[2018-06-03] MEDS ORDERED: Sodium Chloride 0.9% 500 ML IV ONE (13:14)
--- NOTE | 2018-06-03 13:26 | EDM.PDOC ---
ED HPI GENERAL MEDICAL PROBLEM - General Chief Complaint: Neurological Problem Time Seen by Provider: 06/03/18 12:00 Source of Information: Reports: Patient History Limitations: Reports: No Limitations - History of Present Illness INITIAL COMMENTS - FREE TEXT/NARRATIVE: Pt. presents to ER via EMS. Pt. was found on her hands and knees between her bed and bedside table. She was confused and unable to recall the date/her location. She was last seen at approx. 2200 last evening. Daughter states that she was quite fatigued but the patient is being treated from a UTI at this time. She has been started on Bactrim in the clinic and then came to ER with nausea and vomiting. She was admitted and rehydrated. She was treated with Rocephin when she was in ER and discharged on Macrobid. Family states that she has been growing weak over the past months. She was recently started on aricept for dementia. Pt. has been difficult for family to deal with. She refuses to go to a alf or use a life alert. Family states that she is likely not taking her medications as prescribed. She is often malnourished and often forgets to eat and drink. Family states that they are unaware of any history of diabetes. Pt. offers no complaint other than fatigue. No nausea or vomiting. No chest pain or shortness of breath. She was not noted to have any facial droop, extremity weakness, or trouble speaking. Denies any diarrhea or vomiting since she was discharged 1 week ago. Onset: Today Onset Date: 06/03/18 Location: Reports: Generalized Treatments CAR REPAIRMAN: Reports: EKG - Related Data Allergies Allergy/AdvReac Type Severity Reaction Status Date / Time codeine Allergy Cannot Verified 06/03/18 13:57 Remember Penicillins Allergy Hives Verified 06/03/18 13:57 Home Meds: Home Meds Aspirin [Halfprin] 81 mg PO DAILY 12/14/13 [History] Multivitamin [Multivitamins] 1 tab PO DAILY 12/14/13 [History] Rosuvastatin [Crestor] 10 mg PO DAILY 12/14/13 [History] Calcium Citrate/Vitamin D3 [Citracal-Vit D 250 MG-200] 1 each PO DAILY 09/02/16 [History] Cholecalciferol (Vitamin D3) [Vitamin D3] 1,000 unit PO DAILY 09/02/16 [History] Denosumab [Prolia] 60 mg SUBCUT ONETIME 09/02/16 [History] Albuterol Sulfate [Albuterol Sulfate Hfa] 2 puff IH Q4H PRN 05/26/18 [History] Donepezil HCl [Aricept] 5 mg PO DAILY 05/26/18 [History] Acetaminophen [Tylenol] 325 mg PO Q4H PRN 06/03/18 [History] Past Medical History Cardiovascular History: Reports: Syncope Genitourinary History: Reports: Other (See Below) Other Genitourinary History: UTI Musculoskeletal History: Reports: Other (See Below) Other Musculoskeletal History: rivera wrist fracture history Neurological History: Reports: Alzheimers Disease, CVA, Other (See Below) Other Neuro History: dementia Psychiatric History: Reports: Alzheimers Disease - Past Surgical History Endocrine Surgical History: Reports: None Neurological Surgical History: Reports: None Musculoskeletal Surgical History: Reports: None Social & Family History - Family History Cardiac: Reports: None Respiratory: Reports: None - Tobacco Use Smoking Status *Q: Never Smoker - Caffeine Use Caffeine Use: Reports: Coffee, Soda Caffeine Use Comment: 3-4 cups of coffee a day - Recreational Drug Use Recreational Drug Use: No - Living Situation & Occupation Living situation: Reports: Alone Occupation: Retired ED ROS GENERAL - Review of Systems Review Of Systems: See Below Constitutional: Reports: No Symptoms, Malaise, Fatigue. Denies: Fever, Chills HEENT: Reports: No Symptoms Respiratory: Reports: No Symptoms Cardiovascular: Reports: No Symptoms Endocrine: Reports: No Symptoms GI/Abdominal: Reports: No Symptoms : Reports: Other (see HPI) Musculoskeletal: Reports: No Symptoms Skin: Reports: Pallor, Dryness Neurological: Reports: Confusion, Pre-Existing Deficit (history of dementia). Denies: Headache, Numbness, Paresthesia Psychiatric: Reports: No Symptoms ED EXAM, GENERAL - Physical Exam Exam: See Below Exam Limited By: No Limitations General Appearance: No Apparent Distress, Other (awake but confused. Alert to self, not time or place) Eye Exam: Bilateral Eye: EOMI, Normal Inspection, PERRL Ears: Normal External Exam, Normal Canal, Normal TMs Throat/Mouth: Normal Inspection, Normal Lips, Normal Teeth, Normal Gums, Normal Oropharynx, No Airway Compromise Head: Atraumatic, Normocephalic Neck: Normal Inspection, Supple, Non-Tender Respiratory/Chest: No Respiratory Distress, Lungs Clear, No Accessory Muscle Use , Decreased Breath Sounds Cardiovascular: Normal Peripheral Pulses, Regular Rate, Rhythm, No Murmur. No: JVD Peripheral Pulses: 3+: Dorsalis Pedis (L), Dorsalis Pedis (R), 4+: Radial (R) GI/Abdominal: Normal Bowel Sounds, Soft, Non-Tender, No Organomegaly, No Distention, No Mass (Female) Exam: Deferred Rectal (Female) Exam: Deferred Extremities: Normal Inspection, Normal Range of Motion, Non-Tender, No Pedal Edema, Normal Capillary Refill, Pallor Neurological: Alert, CN II-XII Intact, Confused, Disoriented, Slow to Respond, Memory Loss Remote Events, Memory Loss Recent Events. No: Sensory/Motor Deficit Psychiatric: Normal Affect, Normal Mood Skin Exam: Warm, Dry, Intact, Pallor Lymphatic: No Adenopathy EKG INTERPRETATION Rhythm: NSR Chappells: Normal P-Wave: Present QRS: Normal ST-T: Normal QT: Normal Course - Vital Signs Last Recorded V/S: Last Vital Signs Temp 36.1 C 06/03/18 12:00 Pulse 68 06/03/18 12:00 Resp 16 06/03/18 12:00 BP 133/75 06/03/18 12:00 Pulse Ox 97 06/03/18 12:00 - Orders/Labs/Meds Orders: Active Orders 24 hr Category Date Time Status Patient Status [ADT] Routine ADT 06/03/18 13:32 Active CULTURE BLOOD [BC] Stat Lab 06/03/18 12:23 Received CULTURE BLOOD [BC] Stat Lab 06/03/18 12:31 Results Sodium Chloride 0.9% [Normal Saline] 500 ml Med 06/03/18 13:14 Active IV ONETIME Sodium Chloride 0.9% [Saline Flush] Med 06/03/18 12:05 Active 10 ml FLUSH ASDIRECTED PRN Blood Culture x2 Reflex Set [OM.PC] Stat Oth 06/03/18 12:07 Ordered Peripheral IV Insertion Adult [OM.PC] Routine Oth 06/03/18 12:07 Ordered Medication Orders Sodium Chloride (Normal Saline) 500 mls @ 500 mls/hr IV ONETIME ONE Stop: 06/03/18 14:13 Last Admin: 06/03/18 13:18 Dose: 500 mls/hr Sodium Chloride (Saline Flush) 10 ml FLUSH ASDIRECTED PRN PRN Reason: Keep Vein Open Labs: Laboratory Tests 06/03/18 06/03/18 06/03/18 Range/Units 12:23 12:23 12:23 WBC 6.7 (4.0-10.0) x10^3/uL RBC 4.64 (4.00-5.50) x10^6/uL Hgb 14.4 D (12.0-16.0) g/dL Hct 41.3 (33.0-47.0) % MCV 89.0 D (78.0-93.0) fL MCH 31.0 (26.0-32.0) pg MCHC 34.9 (32.0-36.0) g/dL RDW Coeff of Gary 13.0 (10.0-15.0) % Plt Count 183 (130-400) x10^3/uL Neut % (Auto) 89.2 H (50.0-80.0) % Lymph % (Auto) 5.5 L (25.0-50.0) % Dickson % (Auto) 3.6 (2.0-11.0) % Eos % (Auto) 1.6 (0.0-4.0) % Baso % (Auto) 0.1 L (0.2-1.2) % PT 11.8 (10.0-12.8) SEC INR 1.0 L (2.0-3.5) Sodium 137 (136-145) mmol/L Potassium 3.4 L (3.5-5.1) mmol/L Chloride 99 D (98-107) mmol/L Carbon Dioxide 26 (21-32) mmol/L Anion Gap 15.4 (10-20) mmol/L BUN 17 (7-18) mg/dL Creatinine 1.0 (0.55-1.02) mg/dL Est Cr Clr Drug Dosing TNP Estimated GFR (MDRD) 52 Glucose 233 H (74-106) mg/dL Lactic Acid (0.4-2.0) mmol/L Calcium 9.5 D (8.5-10.1) mg/dL Corrected Calcium 10.14 H D (8.5-10.1) mg/dL Phosphorus 4.5 (2.6-4.7) mg/dL Magnesium 2.2 (1.8-2.4) mg/dL Total Bilirubin 1.2 H (0.2-1.0) mg/dL AST 22 (15-37) U/L ALT 20 (14-59) U/L Alkaline Phosphatase 70 (46-116) U/L Creatine Kinase (26-192) U/L Troponin I < 0.017 (<=0.056) ng/mL C-Reactive Protein 2.3 H (<=0.9) mg/dL Total Protein 7.4 (6.4-8.2) g/dL Albumin 3.2 L (3.4-5.0) g/dL Globulin 4.2 Albumin/Globulin Ratio 0.76 TSH, Ultra Sensitive 3.993 H (0.358-3.74) uIU/mL Urine Color (YELLOW) Urine Appearance (CLEAR) Urine pH (5.0-8.0) Ur Specific [place] Urine Protein (NEGATIVE) mg/dL Urine Glucose (UA) (NEGATIVE) mg/dL Urine Ketones (NEGATIVE) mg/dL Urine Occult Blood (NEGATIVE) Urine Nitrite (NEGATIVE) Urine Bilirubin (NEGATIVE) Urine Urobilinogen (0.2) EU/dL Ur Leukocyte Esterase (NEGATIVE) Urine RBC (NOT SEEN) /HPF Urine WBC (NOT SEEN) /HPF Ur Squamous Epith Cells (NEGATIVE) /HPF Amorphous Sediment Urine Bacteria (NEGATIVE) /HPF Hyaline Casts (NEGATIVE) /HPF Granular Casts (NEGATIVE) /HPF Urine Mucus (NEGATIVE) /LPF Ethyl Alcohol < 3 (0-3) mg/dL 06/03/18 06/03/18 06/03/18 Range/Units 12:23 12:23 13:15 WBC (4.0-10.0) x10^3/uL RBC (4.00-5.50) x10^6/uL Hgb (12.0-16.0) g/dL Hct (33.0-47.0) % MCV (78.0-93.0) fL MCH (26.0-32.0) pg MCHC (32.0-36.0) g/dL RDW Coeff of Gary (10.0-15.0) % Plt Count (130-400) x10^3/uL Neut % (Auto) (50.0-80.0) % Lymph % (Auto) (25.0-50.0) % Dickson % (Auto) (2.0-11.0) % Eos % (Auto) (0.0-4.0) % Baso % (Auto) (0.2-1.2) % PT (10.0-12.8) SEC INR (2.0-3.5) Sodium (136-145) mmol/L Potassium (3.5-5.1) mmol/L Chloride (98-107) mmol/L Carbon Dioxide (21-32) mmol/L Anion Gap (10-20) mmol/L BUN (7-18) mg/dL Creatinine (0.55-1.02) mg/dL Est Cr Clr Drug Dosing Estimated GFR (MDRD) Glucose (74-106) mg/dL Lactic Acid 3.0 H* (0.4-2.0) mmol/L Calcium (8.5-10.1) mg/dL Corrected Calcium (8.5-10.1) mg/dL Phosphorus (2.6-4.7) mg/dL Magnesium (1.8-2.4) mg/dL Total Bilirubin (0.2-1.0) mg/dL AST (15-37) U/L ALT (14-59) U/L Alkaline Phosphatase (46-116) U/L Creatine Kinase 82 (26-192) U/L Troponin I (<=0.056) ng/mL C-Reactive Protein (<=0.9) mg/dL Total Protein (6.4-8.2) g/dL Albumin (3.4-5.0) g/dL Globulin Albumin/Globulin Ratio TSH, Ultra Sensitive (0.358-3.74) uIU/mL Urine Color [place] H (YELLOW) Urine Appearance Slightly cloudy H (CLEAR) Urine pH 6.0 (5.0-8.0) Ur Specific [place] >=1.030 Urine Protein >=300 H (NEGATIVE) mg/dL Urine Glucose (UA) 100 H (NEGATIVE) mg/dL Urine Ketones 40 H (NEGATIVE) mg/dL Urine Occult Blood Negative (NEGATIVE) Urine Nitrite Negative (NEGATIVE) Urine Bilirubin Moderate H (NEGATIVE) Urine Urobilinogen 1.0 (0.2) EU/dL Ur Leukocyte Esterase Negative (NEGATIVE) Urine RBC 0-5 (NOT SEEN) /HPF Urine WBC 0-5 (NOT SEEN) /HPF Ur Squamous Epith Cells Not seen (NEGATIVE) /HPF Amorphous Sediment Moderate Urine Bacteria Not seen (NEGATIVE) /HPF Hyaline Casts Moderate H (NEGATIVE) /HPF Granular Casts Rare H (NEGATIVE) /HPF Urine Mucus Few H (NEGATIVE) /LPF Ethyl Alcohol (0-3) mg/dL Meds: Medications Generic Name Dose Route Start Last Admin Trade Name Freq PRN Reason Stop Dose Admin Sodium Chloride 500 mls @ 500 mls/hr 06/03/18 13:14 06/03/18 13:18 Normal Saline IV 06/03/18 14:13 500 mls/hr ONETIME ONE Administration Sodium Chloride 10 ml 06/03/18 12:05 Saline Flush FLUSH ASDIRECTED PRN Keep Vein Open - Radiology Interpretation Free Text/Narrative:: chest x-ray is negative. CT brain without contrast was obtained. significant atrophy noted with enlargement of the ventricles. Radiologist questioned low pressure hydrocephalus. Neurosurgery was consulted and felt the CT was unchanged from on a year ago and in the absence of severe ataxia. Departure - Departure Time of Disposition: 14:16 Disposition: Admitted As Inpatient 66 Clinical Impression: Diabetes mellitus, Dehydration - Discharge Information Referrals: Reina Zimmer MD [Primary Care Provider] - Forms: ED Department Discharge - Problem List Review Problem List Initiated/Reviewed/Updated: Yes - My Orders Last 24 Hours: My Active Orders 06/03/18 12:05 Sodium Chloride 0.9% [Saline Flush] 10 ml FLUSH ASDIRECTED PRN 06/03/18 12:07 Blood Culture x2 Reflex Set [OM.PC] Stat Peripheral IV Insertion Adult [OM.PC] Routine 06/03/18 12:23 CULTURE BLOOD [BC] Stat 06/03/18 12:31 CULTURE BLOOD [BC] Stat 06/03/18 13:14 Sodium Chloride 0.9% [Normal Saline] 500 ml IV ONETIME 06/03/18 13:32 Patient Status [ADT] Routine - Assessment/Plan Last 24 Hours: My Active Orders 06/03/18 12:05 Sodium Chloride 0.9% [Saline Flush] 10 ml FLUSH ASDIRECTED PRN 06/03/18 12:07 Blood Culture x2 Reflex Set [OM.PC] Stat Peripheral IV Insertion Adult [OM.PC] Routine 06/03/18 12:23 CULTURE BLOOD [BC] Stat 06/03/18 12:31 CULTURE BLOOD [BC] Stat 06/03/18 13:14 Sodium Chloride 0.9% [Normal Saline] 500 ml IV ONETIME 06/03/18 13:32 Patient Status [ADT] Routine Plan: Pt. will be admitted acute. Dr. Dorsey will handle the admission. Discussed findings with family. At this point, the cause of her change in mentation appears to be dehydration. She was given a 500ml saline bolus in ER. She was able to transfer from bed to wheelchair and into bed. No antibiotics were started at this point. Social service consult for this patient. Family is quite concerned about her living situation and if she is able to care for herself with dementia. She lives in a house by herself.
--- NOTE | 2018-06-03 13:31 | CR ---
[id number] RAD/RAD Chest PA or AP 1V EXAM: SINGLE VIEW CHEST. INDICATION: ALTERED MENTAL STATUS COMPARISON: CORRELATION IS MADE WITH THE EXAM OF OCTOBER 11, 2010. FINDINGS: The lungs are clear. The cardiomediastinal contour is moderately enlarged. IMPRESSION: NO ACUTE PROCESS. Dallas Sterling MD 06/03/18 [id number] Thank you for allowing us to participate in the care of your patient.
--- NOTE | 2018-06-03 13:31 | CT ---
[id number] CT/CT Head WO IV EXAM: CT Head WO IV CLINICAL DATA: ALTERED MENTAL STATUS COMPARISON: CORRELATION IS MADE WITH THE EXAM OF MAY 30, 2015. FINDINGS: There has been progressive hydrocephalus. The cortical sulci are not prominent. Question raised if the patient has normal pressure hydrocephalus. Numerous surgical opinion would be helpful. There is no hemorrhage. There is no mass or mass effect. There are no extra-axial fluid collections. There are no discrete sites of abnormal attenuation. IMPRESSION: Question of normal pressure hydrocephalus. Neurosurgical pain suggested Dallas Sterling MD 06/03/18 [id number] Thank you for allowing us to participate in the care of your patient.
[2018-06-03] MEDS ORDERED: Acetaminophen 325 MG Tab PO PRN (15:20)
[2018-06-03] MEDS ORDERED: Ondansetron 4 MG Tab.DIS PO PRN (15:21)
[2018-06-03] MEDS: NS + KCl 20mEq/L 1,000 ML IV SCH (15:26)
[2018-06-03] MEDS ORDERED: Albuterol 0.083% 2.5 MG/3 ML Neb Soln INH PRN (15:30)
--- NOTE | 2018-06-03 18:41 | HP ---
CHIEF COMPLAINT: Fall at home, confusion and weakness. HISTORY OF PRESENT ILLNESS: This is an 87-year-old female who lives alone in her home. Daughter checked on her this morning, found her with her hands and knees wedged between her bed and her bedside table. She was very confused, unable to recall the date. She was last seen at 10 p.m. last evening. The patient had been more fatigued, been having a hard time walking, even grabbing onto furniture. She had been recently treated for UTI with Bactrim from the clinic on 05/25/2018 and then was admitted to observation for severe nausea on 05/26/2018. She also was newly started on Aricept. Daughters report she is not always good about taking her pills. She was taken off the Bactrim, received some IV Rocephin, then went home on the on Macrobid, but it sounds like she never picked up or took those pills. She denies any abdominal pain or burning with urination. She has not had any fever, but she does feel chilled. She denies any muscular or joint aches or pains. She denies any coughing. No shortness of breath, but she has been more confused even recently. There was a call to the clinic that she was not drinking much water, maybe even just 4 ounces a day, trying to avoid not going to the bathroom all the time. She did not even know her own birthday. The patient admits that she was going to the bathroom so frequently, but has not been going frequently in the last day or so. She does not eat well, tends to eat a lot of sweets per her daughters. She refused home health on the last admission, refused self-pay swing. She has not even wanted to get a lifeline in the past, but did report she was thinking about that today. She has possibly a remote history of a stroke, but really does not have any medical problems other than cognitive impairment for which in the clinic she recently had a mini-mental that went down from 26 to 22/30. It sounds like from her daughters, this has been a gradual decline. She no longer drives because her family will not let her, but she told me she does remember the snowstorm we had this week. ALLERGIES: Include penicillin, cannot remember. Codeine, nausea and vomiting. Bactrim, nausea and vomiting. MEDICATIONS: Her medication list includes newly started on Aricept 5 mg daily, Crestor 10 mg daily, Prolia every 6 months, vitamin D, Tylenol, multivitamin, calcium, and aspirin. 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 PAST SURGICAL HISTORY: Does include the wrist fracture surgery. FAMILY HISTORY: Both parents are . A sister of liver cancer. Her father had an NV. Mother had some lung problems. Brother had cancer of the lung. SOCIAL HISTORY: She is . She is retired from doing childcare. She lives alone in her own home. She is a nonsmoker, nondrinker. REVIEW OF SYSTEMS: General: She does not admit to any weight changes, the daughters have noticed some weight changes, in fact she is down 10 pounds since last year. HEENT: No sore throat. Cardiac: No chest pain. No palpitations. Respiratory: No cough, no shortness of breath. Abdomen: As stated in HPI. Otherwise, all systems reviewed and are negative unless otherwise stated. PHYSICAL EXAMINATION: Vital Signs: Her weight is 49.8 kg. Her temperature 97.8, pulse 84, blood pressure 143/82, respiratory rate 16, and O2 of 99% on room air. General: She is in no acute distress. Heart: Regular rate and rhythm. S1, S2 without murmur. Respiratory: Lung sounds are clear to auscultation bilaterally without crackles or wheezes. Abdomen: Positive bowel sounds. Soft, nontender. Extremities: Warm and dry. No edema. Her extremities are actually cool. Her right knee is examined. There is a little bit of redness, but no swelling. She has good range of motion. She does not express any tenderness. Mental Status: She is alert and she is aware she is at the hospital and that her daughters are present. She is aware the season was recently winter, seems to be even more clear than what she was doing in the ER. Although, it should be noted she does not really remember being admitted to the hospital just last week. LABORATORY DATA: Lab work did show her CK level to be normal. Her white count 6.7, hemoglobin 14.4 when it was 11.1 on discharge, platelets 183. INR 1. Sodium 137, potassium 3.4, chloride 99, bicarb 26, BUN 17, creatinine 1, GFR 52, glucose 233. No history of diabetes. Lactate 3, calcium corrected 10.1, mag 2.2, phos 4.5, bili 1.2, AST 22, ALT 20, alkaline phosphatase 70, CRP 2.3, albumin 3.2, TSH 3.9. UA negative for blood and 0 to 5 wbc's and rbc's. Negative alcohol. She did have slight urine bilirubin. CT of the head did question some hydrocephalus. Otherwise, chest x-ray showed no acute findings. A call was made to Neurosurgery and documented by Colin Gunter. CT showed no blood with significant brain atrophy and ventriculomegaly, similar to the 2016 CT. Could consider NPH, but that is a clinical triad of ataxia and incontinence. Discussed with family this is something we would have to sort out once we treat the acute issues of dehydration and electrolyte abnormalities. The significant brain atrophy was stable since 2016. ASSESSMENT: 1. Acute severe dehydration. The patient's weight has decreased and her lab work shows that she has a significantly negative fluid balance. I think this is contributing to her worsening of memory. She is at high risk to get the rhabdomyolysis, but luckily her CK was normal. We will repeat a CK and her lactic acid in 3 hours. We will give her IV fluids, normal saline with potassium, and repeat lab work in the morning. 2. Lactic acidosis. Unclear etiology, possibly due to the dehydration. We will repeat lab work tomorrow. 3. Fall. The patient cannot give me details if she passed out or if it was a mechanical fall. She really does not even remember it. We will just monitor her with telemetry. We will get her started with physical therapy. 4. Cognitive impairment, probably at least moderate dementia. I am going to hold the Aricept for now given her recent acute findings, could retry it when she is more stable in the future. 5. Osteoporosis. She is on outpatient treatment. 6. Hyperlipidemia. We will order her Crestor. 7. Recent urinary tract infection. Her current UA does not show any infection. 8. Mixed urinary incontinence, appears to be a longstanding problem. She is not endorsing any symptoms now. 9. Gait impairment. We will have her up and working with Therapies. If she does have ataxia down the road, she will need a Neurology eval for possibly hydrocephalus. 10. Hyperglycemia no hx of diabetes we will do QID accuchecks PLAN: At this point, discussed in detail with the patient and her daughters is to give her IV fluids and monitor lab work. Dr. Zimmer can follow from tomorrow. We will get Therapies and Social Service involved. They are very much interested in having her do some swing bed. She is a code level 3. No CPR planned. She will be on Lovenox for DVT prophylaxis. MKA: 06/03/2018 15:19:39 MODL: 06/03/2018 18:20:41 /[id number] MTDD
[2018-06-03] MEDS: Enoxaparin 40 MG/0.4 ML Syringe SUBCUT SCH (19:54)
[2018-06-03] MEDS: atorvaSTATin 40 MG Tab PO SCH (19:54)
[2018-06-04] MEDS: NS + KCl 20mEq/L 1,000 ML IV SCH ×3 (01:42→21:30)
[2018-06-04 07:16] LABS: ANION GAP 13.9 mmol/L (10-20); CHLORIDE,CL 108 mmol/L (98-107); SODIUM,NA 140 mmol/L (136-145)
[2018-06-04] MEDS: Cholecalciferol (Vitamin D3) 1,000 Unit Tab PO SCH (07:56)
[2018-06-04] MEDS: Aspirin 81 MG Tab.EC PO SCH (07:56)
--- NOTE | 2018-06-04 09:30 | PN ---
Progress Note for HARPER JADE Date: 06/04/2018 Room #: VM.217 SUBJECTIVE: The patient was admitted yesterday because having been found at home, stuck on the bed. She does not recall what happened. She was noted to be quite confused when she was brought in. She has not been drinking well. It was noted her initial CK enzyme was normal, but they have become elevated and is still elevated this morning. Her daughters accompany her today, and they state that she has had many problems with being confused at home. She does not take her medications. She has poor hygiene. House is dirty. They do not want her to live home alone any more. The patient has been adamant about wanting to stay home alone. When she was last seen in the clinic about a month ago, she was noted to be confused more so, so she was placed on Aricept. Also, the same day she had a bladder infection, so she had been started on Aricept as well as Bactrim at the same time, and she had become nauseated and had to be hospitalized, under observation on 05/26/2018 until 05/28/2018. At that time, she had not been seen by Sales Support Technician nor Physical Therapy. The patient has been receiving IV hydration. She did have a head CT which shows some hydrocephalus present, but she has had some noted in the past, but the patient also had been having an initial high sugar when she was admitted, but then it has since been staying within normal range. The patient has been on telemetry, which has continued to show normal sinus rhythm. OBJECTIVE: Vital Signs: Objectively, her temperature is 37.3, pulse is 78, blood pressure is 125/73, respirations are 18, saturations are 94%. General: She is lying in bed. She recognizes who I am. She is very articulate and talkative, states she does not remember what has happened. She is a bit vague about answers, but would like to get home. She hires her yard work done. Heart: Regular rate and rhythm. Lungs: Reveal a few crackles on left base. Abdomen: Soft. Musculoskeletal: Bones are nontender. Skin: No sores. Neurologic: The patient's gait was not assessed. Right now, she has been lying in bed. LABORATORY DATA: Her labs came back with her hemoglobin dropped from 14.4 down to 11.1, which may be dilutional. Her white blood cell count 5.2, platelets are 128. Sodium is 140, potassium is improved to 3.9 from 3.4 on admission. Creatinine was 1.0 on admission, now down to 0.6. GFR went from 52 up to greater than 60. Glucose on admission was 233. Accu-Chek showed it was 100 and then 111 after eating. This morning she was 88. Lactic acid had been checked on admission, was 3.0, now it is down to 2.2, when it was rechecked few hours later. Calcium corrected is normal at 8.94. Phosphorus on admit was 4.5, magnesium on admit was 2.2. Total bilirubin was 1.2 on admit. CK on admit was 82, had gone up to 407 and now this morning is higher at 488. CRP had been 2.3 on admission. Albumin was 3.2 on admission, now to 2.7. Urine on admission showed some protein present, some sugar present, ketones are present, moderate bilirubin with casts present. EKG did show normal sinus rhythm on admission. IMPRESSION: 1. Rhabdomyolysis. 2. Weakness secondary to fall. 3. Dementia. 4. Dehydration, improving. 5. Hyperglycemia, improved. 6. Hypercholesterolemia. 7. Anemia, possibly dilutional. PLAN: The patient will be seen by Physical Therapy, Occupational Therapy today. We will repeat chest x-ray today. We will continue IV hydration to help keep kidneys perfused. We will recheck urinalysis to see if it is improving with sediment that is present. We will have Sales Support Technician see patient. I did visit with daughters, and they do not want her to return home. They would consider assisted living. To note, the patient had refused home health the last time she had gone home and with her cognitive decline, do not feel that she is safe to be at home when she is a danger to herself. GM06/04/2018 08:39:39 MODL: 06/04/2018 09:19:21 /[id number]
--- NOTE | 2018-06-04 09:47 | CR ---
[id number] RAD/RAD Chest PA And Lateral EXAM: FRONTAL AND LATERAL CHEST INDICATION: CRACKLES ON LEFT. COMPARISON: June 03, 2017. DISCUSSION: Hyperinflation is consistent with chronic obstructive pulmonary disease. No acute infiltrates are identified. Borderline heart size. IMPRESSION: 1. No acute findings. Anurag Flaherty MD 06/04/18 0945 Thank you for allowing us to participate in the care of your patient.
[2018-06-04] MEDS: atorvaSTATin 40 MG Tab PO SCH (19:38)
[2018-06-04] MEDS: Enoxaparin 40 MG/0.4 ML Syringe SUBCUT SCH (19:52)
[2018-06-04] MEDS: Donepezil 5 MG Tab PO SCH (21:17)
[2018-06-05] MEDS: Aspirin 81 MG Tab.EC PO SCH (07:09)
[2018-06-05] MEDS: Cholecalciferol (Vitamin D3) 1,000 Unit Tab PO SCH (07:09)
[2018-06-05] MEDS: NS + KCl 20mEq/L 1,000 ML IV SCH (07:10)
[2018-06-05 07:22] LABS: CHLORIDE,CL 111 mmol/L (98-107); SODIUM,NA 143 mmol/L (136-145)
[2018-06-05 07:23] LABS: ANION GAP 12.9 mmol/L (10-20)
[2018-06-05] MEDS ORDERED: Sodium Chloride 0.9% 10 ML Syringe FLUSH PRN (08:17)
[2018-06-05] MEDS: Magnesium Oxide 400 MG Tab PO SCH (08:40)
--- NOTE | 2018-06-05 09:22 | PN ---
Progress Note for HARPER JADE Date: 06/05/2018 Room #: VM.217 SUBJECTIVE: The patient is eager to go home. She does not remember why she is here. She cannot remember falling at home or having been in the hospital a couple of weeks ago. She denies any problems with pain. She did comment that she had to void a lot during the night. She did have a urine repeated yesterday as her first one on the admit did have many casts present, it was negative for infection. The patient has been seen by PT, as well as OT is just starting to assess her. Assembler Faucets has met with family and talking about discharge plans. It is not felt that the patient is safe enough to return to her home to live alone anymore because of her forgetfulness. OBJECTIVE: Vital Signs: Her temperature is 36.1, pulse 74, blood pressure is 124/71, and saturations are 96%. Skin: [place], warm, and dry. Heart: Regular rate and rhythm. Lungs: Rare inspiratory wheeze on the left base, right is clear. Abdomen: Soft. Bowel sounds present. Extremities: Lower extremities, no edema. Neurologic: The patient is very talkative. Moves extremities all symmetric. Psych: Psych moss, she is pleasantly forgetful with poor short-term memory. LABORATORY DATA: Today, her sodium is 143, potassium 3.9, creatinine 0.6, GFR greater than 60, CK has improved to 239 from 488 yesterday with normal being 192 or less. Her magnesium came back low at 1.6. LFTs are normal. Chest x-ray was done yesterday, which was normal. IMPRESSION: 1. Rhabdomyolysis. 2. Dehydration, which is improving. 3. Hypomagnesemia. 4. Dementia. 5. Urinary incontinence. PLAN: We will start her on oral magnesium. We will start oxybutynin for her bladder. We will saline lock her IV fluids. We will see how she does today eating. We will get a dietary consult. We are awaiting completion of OT assessment on the patient. Assembler Faucets is working with family, and the patient should be set up to be in assisted living. Anticipate discharge hopefully tomorrow for the patient or she may need self-pay swing bed if there is not living arrangements available. Daughters were on board with also having the patient to be placed in assisted living. GM06/05/2018 08:25:06 MODL: 06/05/2018 08:51:37 /[id number]
[2018-06-05] MEDS: atorvaSTATin 40 MG Tab PO SCH (19:37)
[2018-06-05] MEDS: Enoxaparin 40 MG/0.4 ML Syringe SUBCUT SCH (19:38)
[2018-06-05] MEDS: Oxybutynin 5 MG Tab.ER PO SCH (19:38)
[2018-06-05] MEDS: Donepezil 5 MG Tab PO SCH (19:38)
[2018-06-06 07:08] LABS: ANION GAP 12.4 mmol/L (10-20); CHLORIDE,CL 110 mmol/L (98-107); SODIUM,NA 143 mmol/L (136-145)
[2018-06-06] MEDS: Potassium Chloride 10 MEQ Tab.ER PO SCH (08:54)
[2018-06-06] MEDS: Aspirin 81 MG Tab.EC PO SCH (08:54)
[2018-06-06] MEDS: Albuterol 8 GM Inhaler INH SCH ×3 (08:54→20:48)
[2018-06-06] MEDS: Multivitamins with Iron/Calcium/Folic Acid/Minerals Tab PO SCH (08:54)
[2018-06-06] MEDS: Cholecalciferol (Vitamin D3) 1,000 Unit Tab PO SCH (08:54)
[2018-06-06] MEDS: Magnesium Oxide 400 MG Tab PO SCH (08:54)
--- NOTE | 2018-06-06 09:15 | PN ---
Progress Note for HARPER JADE Date: 06/06/2018 Room #: VM.217 SUBJECTIVE: The patient keeps asking if she can go home. She does not mind being here, but she loves her home. The patient has been getting a little more strength, working with therapy with walking as well as occupational therapy with cares. She did not have further mental status documentation yesterday by OT. The patient has very short-term memory. Tapper Helper have been working with family and arrangements are that she can go to assisted living tomorrow. OBJECTIVE: Vital Signs: Her temperature is 36.6, pulse 94, blood pressure is 137/66, respirations are 18, and sats are 97%. General: She is sitting pleasantly in a chair. Skin: [place], warm, and dry. Heart: Regular rate and rhythm. Lungs: Reveal inspiratory wheezes bilaterally. Abdomen: Soft. Extremities: Lower extremities, no edema. Neurologic: The patient is pleasantly forgetful and has very poor insight as to what is going on with her health as well as poor short-term memory. LABORATORY DATA: Her lab today shows that her hemoglobin has dropped down to 10.7 from 11.1 two days ago, white blood cell count 4.6, and platelets are 166. Sodium is 143, potassium down to 3.4, creatinine 0.7, GFR greater than 60, glucose is 93, calcium is 8.0, and magnesium yesterday had been low at 1.6. LFTs are normal. Her CK has improved now to 101, which is within normal range. Albumin is 2.5, which is low. IMPRESSION: 1. Rhabdomyolysis, improving. 2. Dehydration, improving. 3. Failure to thrive. 4. Malnutrition. 5. Hypomagnesemia. 6. Hypokalemia. 7. Anemia. 8. Asthma. PLAN: We will place the patient on a scheduled albuterol inhaler with a spacer. We will start a multivitamin. We will check iron storage levels today. She is working with OT as well as PT. We will have the patient plan to be going to assisted living tomorrow. GM06/06/2018 08:38:06 MODL: 06/06/2018 09:04:46 /[id number]
[2018-06-06] MEDS: Oxybutynin 5 MG Tab.ER PO SCH (20:47)
[2018-06-06] MEDS: atorvaSTATin 40 MG Tab PO SCH (20:47)
[2018-06-06] MEDS: Donepezil 5 MG Tab PO SCH (20:47)
[2018-06-06] MEDS: Enoxaparin 40 MG/0.4 ML Syringe SUBCUT SCH (20:48)
[2018-06-07 07:26] LABS: ANION GAP 13.4 mmol/L (10-20); CHLORIDE,CL 109 mmol/L (98-107); SODIUM,NA 144 mmol/L (136-145)
[2018-06-07] MEDS ORDERED: Cyanocobalamin (Vitamin B12) 1,000 MCG/ML SDV IM ONE (08:30)
--- NOTE | 2018-06-07 09:01 | PN ---
Progress Note for HARPER JADE Date: 06/07/2018 Room #: VM.217 SUBJECTIVE: The patient is wanting to go home, but she understands that plans are being made for her to go to assisted living. She is quite forgetful and she thought at one time she was at assisted living and does not recall where she has been. She does not care for the taste of the albuterol inhaler that she has used even though she has used with a spacer. OBJECTIVE: Vital Signs: Objectively, her weight yesterday had gone up to 55 kg from her admission weight, which was 52. Her blood pressure is 129/61, her pulse is 67, temperature is 36.9, saturations are 98%, and respiratory rate 16. General: Objectively; she is calm, sitting in the chair, nicely dressed, and very talkative. Heart: Regular rate and rhythm. Lungs: Have inspiratory wheeze on bases. Abdomen: Soft. Extremities: Lower extremities, no edema. LABORATORY DATA: Her lab today came back with her magnesium normal at 1.8, potassium still slightly low at 3.4, hemoglobin stable at 10.7. Her calcium is 7.9, albumin is 2.5. Her vitamin B12 level did come back at 184, this is low. Her CK today is even improved from yesterday down to 58. IMPRESSION: 1. Rhabdomyolysis, which is resolved. 2. Dehydration, resolved. 3. Dementia. 4. Vitamin B12 deficiency. 5. Asthma. 6. Anemia. 7. Malnutrition. PLAN: The patient will be set up with home health to assess her in her assisted living environment and the patient needs a walker to ambulate around, she depends on others to have transport to the hospital. I will be monitoring her home health status. The patient will be given a vitamin B12 shot today to get started on replacement due to her memory deficits and we will switch her to oral pills and we will check her B12 level over time to see if she is able to maintain now with oral supplements or she will need to have resumption of shots. We will have her return to see me in the clinic in 2 weeks time. Please refer to discharge orders. GM06/07/2018 08:36:09 MODL: 06/07/2018 08:52:32 /[id number]
[2018-06-07] MEDS: Cholecalciferol (Vitamin D3) 1,000 Unit Tab PO SCH (09:17)
[2018-06-07] MEDS: Magnesium Oxide 400 MG Tab PO SCH (09:17)
[2018-06-07] MEDS: Potassium Chloride 10 MEQ Tab.ER PO SCH (09:17)
[2018-06-07] MEDS: Aspirin 81 MG Tab.EC PO SCH (09:18)
[2018-06-07] MEDS: Multivitamins with Iron/Calcium/Folic Acid/Minerals Tab PO SCH (09:18)
[2018-06-07] MEDS: Albuterol 8 GM Inhaler INH SCH (09:18)
[2018-06-07 09:54] VITALS: BP 119/57
--- NOTE | 2018-06-07 16:27 | DISCH ---
PRIMARY DIAGNOSES: 1. Rhabdomyolysis. 2. Dehydration. 3. Dementia, worsening. 4. Vitamin B12 deficiency, new onset. 5. Hypomagnesemia. 6. Hypokalemia. 7. Anemia due to malnutrition. 8. Failure to thrive. 9. Asthma. 10.Hypercholesterolemia. 11.Recent urinary tract infection. 12.Osteoporosis. 13.Mixed incontinence. 14.Gait impairment. 15.Hyperglycemia. SUMMARY OF ADMIT HISTORY AND PHYSICAL: The patient is an 87-year-old female who returns to the emergency room after having been found on the floor, was last seen the night before at 10:00 p.m. Family had gone to check on her. The patient had recently been treated for bladder infection on 05/25/2018 with sulfa and had also been started on Aricept. She had presented to the emergency room on 05/26/2018 with severe nausea and she was admitted for overnight stay, given rehydration, and she was switched on to antibiotics. The patient is very forgetful and cannot remember what happened when. Her initial CK enzyme was normal in the emergency room. The patient denied any fever. The patient has been very adamant about trying to live in her home environment. Her daughters were both present and stating that the patient is failing at home and should not be living home alone anymore and she has been very reluctant to accept help. Her other laboratory data from admission showed her white blood cell count 6.7, hemoglobin 14.4, sodium 137, potassium 3.4, creatinine 1, GFR 52, BUN 17, glucose 233, lactic 3, corrected calcium 10.1, magnesium 2.2, phosphorus 4.5, total bilirubin 1.2, AST 22, ALT 20, alkaline phosphatase 70, CRP 2.3, albumin 3.2, TSH 3.9. UA was negative. CT of the head showed hydrocephalus which had worsened since previous one. Chest x-ray showed no acute findings. SUMMARY OF HOSPITAL COURSE: The patient was admitted on acute care, given IV hydrations. Her labs were continued to be monitored. She was followed by PT and OT. The patient is code level 3 status. She was placed on Lovenox for deep vein thrombosis prophylaxis. She was not felt to need an antibiotic. To note, the next morning, her CK enzyme had gone up to 407. Her lactic acid improved to 2.2. Her hemoglobin had dropped which was somewhat felt to be delusional, however, IV fluids have been stopped and it had stayed at 10.7 by 06/07/2018. Her potassium had dropped down to 3.4 after IV fluids had stopped, and so she was started on oral potassium replacement. Her potassium on 06/07/2018 was 3.4. Glucose was monitored and only initial one was high, which might have been drawn maybe near her IV site, so other blood sugars had stayed down in the 80s, so she was not felt to have any problems with diabetes. Her magnesium had dropped down to 1.6 and was back up to 1.8 after oral replacement. Her LFTs had improved. CK had maxed out at 488 on 06/04/2018, but by 06/07/2018, it had gone back to normal at 58. A urinalysis was also rechecked because there was quite much protein present and some casts present. Recheck urine on 06/04/2018 showed no protein, specific gravity had improved from greater than 1.030 to 1.015. She had negative bilirubin. She had 4 to 10 red blood cells. No casts seen. Alcohol level had been checked on admission was less than 3. I did do iron storage test on 06/07/2018, which showed her iron was normal at 75, TIBC was low at 184, percent saturation was 40.8 which was normal. Ferritin normal at 93. Her vitamin B12 level did come back on 06/07/2018, low at 184, so she was given an IM injection for immediate replacement, but then will be switched to oral pills and we will need to monitor this over time. Repeat chest x-rays had been done to make certain she was not developing any sort of congestive heart failure and it was negative for any fluid and so her wheezing was felt to be due to her asthma. She was placed on a scheduled albuterol inhaler, which she did not care for the taste. Physical Therapy worked with the patient and felt that she was about her baseline at the time of discharge. OT is not complete with the report yet, but the patient is noted to have cognitive dysfunction, and prior to admit, her Mini-Mental Status Exam had been from the clinic about , and that was the reason that she had been started on Aricept. The patient is felt to need assistance of home health because she does use a walker for ambulation. She is very forgetful and demented. She cannot drive herself. She would rely on other staff to bring her to an appointment. The patient's gait has been noted to be unstable and the reason for her fall as she came into the hospital, and I will be monitoring her improvement with home health. MEDICATIONS AT THE TIME OF DISCHARGE: Will be multivitamin 1 pill daily; aspirin 81 mg 1 pill daily; Crestor 10 mg at bedtime; vitamin D 1000 units daily; Prolia 60 mg subcu every 6 months; calcium with vitamin D 250 one pill daily; Aricept 5 mg 1 pill at bedtime; albuterol should be 2 puffs every 4 hours as needed for shortness of breath, she uses with a spacer; Tylenol 325 q.4 hours p.r.n.; vitamin B12 1000 mcg 1 pill daily; magnesium oxide 400 mg daily; oxybutynin extended release 5 mg 1 pill at bedtime; potassium chloride 10 mEq 1 pill daily. FOLLOWUP: The patient is to follow up and see me in 2 weeks' time. The patient is a do not resuscitate, do not intubate status at the time of discharge. GM06/07/2018 08:52:17 MODL: 06/07/2018 16:20:40 /[id number]
[2018-06-08] MEDS ORDERED: Cyanocobalamin (Vitamin B12) 1,000 MCG Tab PO SCH (08:00)
== END 2018-06-07 11:40 | disposition home health service (06) | DRG 558 ==
LOC: VM.ED 12:00 → VM.MS 13:32
PROVIDERS: ADMIT Internal Medicine; ATTEND Family Medicine
DX: M62.82 Rhabdomyolysis (principal); E46 Unspecified protein-calorie malnutrition; E87.2 Acidosis; E86.0 Dehydration; M81.0 Age-related osteoporosis without current pathological fracture; K21.9 Gastro-esophageal reflux disease without esophagitis; I73.9 Peripheral vascular disease, unspecified; J45.20 Mild intermittent asthma, uncomplicated; Z66 Do not resuscitate; W18.30XA Fall on same level, unspecified, initial encounter; G30.9 Alzheimer's disease, unspecified; F02.80 Dementia in other diseases classified elsewhere, unspecified severity, without behavioral disturbance, psychotic disturbance, mood disturbance, and anxiety; R26.9 Unspecified abnormalities of gait and mobility; R73.9 Hyperglycemia, unspecified; R62.7 Adult failure to thrive; E78.00 Pure hypercholesterolemia, unspecified; E87.6 Hypokalemia; E83.42 Hypomagnesemia; R32 Unspecified urinary incontinence; E53.8 Deficiency of other specified B group vitamins; D64.9 Anemia, unspecified; Z79.82 Long term (current) use of aspirin; Z88.0 Allergy status to penicillin; Z88.5 Allergy status to narcotic agent; Z88.1 Allergy status to other antibiotic agents; Z79.899 Other long term (current) drug therapy; Z86.73 Personal history of transient ischemic attack (TIA), and cerebral infarction without residual deficits; Z68.20 Body mass index [BMI] 20.0-20.9, adult
CPT/HCPCS: 36415; 70450; 71045; 71046; 80053; 81001; 82550; 82607; 82728; 82962; 83540; 83550; 83605; 83735; 84100; 84443; 84484; 85025; 85610; 86140; 87040; 93010; 96360; 97110-GP; 97116-GP; 97162-GP; 97165-GO; 97535-GO; 99284-GF; 99285-25; A9270-GY; G0480; G0515-GO; J1650; J3420; J3480; J7040

== ENCOUNTER 2019-02-03 18:48 | Emergency (ER) | payer MEDICARE, OTHER ==
[2019-02-03 19:16] VITALS: BP 130/63; PULSE 86
--- NOTE | 2019-02-03 19:37 | EDM.PDOC ---
ED HPI GENERAL MEDICAL PROBLEM - General Chief Complaint: Upper Extremity Injury/Pain Stated Complaint: FELL; HURT ARM Time Seen by Provider: 02/03/19 19:11 Source of Information: Reports: Patient - History of Present Illness INITIAL COMMENTS - FREE TEXT/NARRATIVE: Brissa is ab 88 y/o lady who was helping wipe tables at the [facility] [email or web address] when she lost her balance and fell. When she was assisted up her left arm hurt. She could note exactly remember how she fell, but denies any sx prior and felt fine. She is now hold her left arm at a 90 degree angle for comfort. She denies an other injuries. She denies needs for pain meds on arrival. Left Upper Arm Pain Score (Numeric/FACES): 2 - Related Data Allergies Allergy/AdvReac Type Severity Reaction Status Date / Time codeine Allergy Cannot Verified 02/03/19 19:06 Remember Penicillins Allergy Hives Verified 02/03/19 19:06 Home Meds: Home Meds Aspirin [Halfprin] 81 mg PO DAILY 12/14/13 [History] Multivitamin [Multivitamins] 1 tab PO DAILY 12/14/13 [History] Rosuvastatin [Crestor] 10 mg PO BEDTIME 12/14/13 [History] Calcium Citrate/Vitamin D3 [Citracal-Vit D 250 MG-200] 1 tab PO DAILY 09/02/16 [ History] Cholecalciferol (Vitamin D3) [Vitamin D3] 1,000 unit PO DAILY 09/02/16 [History] Denosumab [Prolia] 60 mg SUBCUT Q182D 09/02/16 [History] Albuterol Sulfate [Albuterol Sulfate Hfa] 2 puff IH Q4H PRN 05/26/18 [History] Donepezil HCl [Aricept] 5 mg PO BEDTIME 05/26/18 [History] Acetaminophen [Tylenol] 325 mg PO Q4H PRN 06/03/18 [History] Albuterol [Ventolin HFA] 1 gm INH TID #1 inhaler 06/07/18 [Rx] Cyanocobalamin (Vitamin B12) [Vitamin B12] 1,000 mcg PO DAILY #30 tablet [Rx] Magnesium Oxide 400 mg PO DAILY #30 tablet 06/07/18 [Rx] Oxybutynin [Oxybutynin ER] 5 mg PO BEDTIME #30 tab.er 06/07/18 [Rx] Potassium Chloride [Klor-Con 10] 10 meq PO DAILY #30 tab.er 06/07/18 [Rx] Past Medical History HEENT History: Reports: Hard of Hearing Cardiovascular History: Reports: Syncope Other Cardiovascular History: Bilateral carotid artery stenosis Respiratory History: Reports: Asthma Gastrointestinal History: Reports: Chronic Constipation, Fecal Incontinence, GERD Genitourinary History: Reports: Other (See Below) Other Genitourinary History: UTI 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: Musculoskeletal History: Reports: Other (See Below) Other Musculoskeletal History: rivera wrist fracture history Neurological History: Reports: Alzheimers Disease, CVA, Other (See Below) Other Neuro History: dementia Psychiatric History: Reports: Alzheimers Disease Endocrine/Metabolic History: Reports: Vitamin D Deficiency Hematologic History: Reports: Anemia Dermatologic History: Reports: Other (See Below) Other Dermatologic History: Pallor - Past Surgical History GI Surgical History: Reports: Colonoscopy Endocrine Surgical History: Reports: None Neurological Surgical History: Reports: None Musculoskeletal Surgical History: Reports: None Social & Family History - Family History Family Medical History: Noncontributory Cardiac: Reports: None Respiratory: Reports: None - Tobacco Use Smoking Status *Q: Never Smoker - Caffeine Use Caffeine Use: Reports: Coffee, Soda Caffeine Use Comment: 3-4 cups of coffee a day - Recreational Drug Use Recreational Drug Use: No - Living Situation & Occupation Living situation: Reports: Alone Occupation: Retired Review of Systems - Review of Systems Review Of Systems: See Below Constitutional: Reports: No Symptoms Eyes: Reports: No Symptoms Ears: Reports: No Symptoms Nose: Reports: No Symptoms Mouth/Throat: Reports: No Symptoms Respiratory: Reports: No Symptoms Cardiovascular: Reports: No Symptoms GI/Abdominal: Reports: No Symptoms Genitourinary: Reports: No Symptoms Musculoskeletal: Reports: No Symptoms, Arm Pain (left upper arm) Skin: Reports: No Symptoms ED EXAM, GENERAL - Physical Exam Exam: See Below Ears: Hearing Grossly Normal Nose: No Blood Throat/Mouth: Normal Lips, Normal Teeth Head: Atraumatic, Normocephalic Neck: Supple Respiratory/Chest: No Respiratory Distress Cardiovascular: Normal Peripheral Pulses, Regular Rate, Rhythm, No Edema GI/Abdominal: Normal Bowel Sounds, Soft, Non-Tender (Female) Exam: Deferred Rectal (Female) Exam: Deferred Extremities: Normal Capillary Refill, Other (Note left arm in 90 degree flexed position for comfort, minor indentation noted at upper lateral aspectof left arm , no bruiseing noted) Neurological: Alert, Oriented, CN II-XII Intact, Normal Cognition Psychiatric: Normal Affect, Normal Mood Skin Exam: Warm, Dry, Intact, Normal Color, No Rash Course - Vital Signs Text/Narrative:: The patient was seen by the DIRECTIONAL DRILLER. She was offered pain meds, but declined. Xray ordered. [address] [facility] and Xray sent for review. [address] Poe-Galen lead python developer at [facility] regarding xray. Recommends another shoulder xray view, then will put patient in should immobilizer and have her see her PCP Dr Zimmer to set up referral to Ortho and MRI to exclude rotator cuff injury. Discussed with patient and her daughters who agree. 2129 Shoulder immobilizer applied. Discharge instructions given and patient left in stable condition. Last Recorded V/S: Last Vital Signs Temp 35.7 C 02/03/19 18:50 Pulse 86 02/03/19 18:50 Resp 16 02/03/19 18:50 BP 130/63 02/03/19 18:50 Pulse Ox 100 02/03/19 18:50 - Orders/Labs/Meds Orders: Active Orders 24 hr Category Date Time Status Shoulder 1V Lt [CR] Stat Exams 02/03/19 21:03 Ordered Departure - Departure Time of Disposition: 21:40 Disposition: Home, Self-Care 01 Condition: Good Clinical Impression: Injury of left shoulder - Discharge Information Instructions: How to Use a Shoulder Immobilizer Referrals: Reina Zimmer MD [Primary Care Provider] - Forms: ED Department Discharge Additional Instructions: -Call Dr Zimmer's office in the AM to set up a follow up appt -Acetaminophen 1000mg oral every 6 hours as needed for pain. Use over the counter meds. -Wear shoulder immobilizer on left shoulder until seen by Dr Russell and MRI and Ortho referral set up. -Return to the ER as needed Sepsis Event Note - Evaluation Sepsis Screening Result: No Definite Risk - Focused Exam Vital Signs: Vital Signs Temp Pulse Resp BP Pulse Ox 02/03/19 18:50 35.7 C 86 16 130/63 100 Date Exam was Performed: 02/03/19 Time Exam was Performed: 21:10 - My Orders Last 24 Hours: My Active Orders 02/03/19 21:03 Shoulder 1V Lt [CR] Stat - Assessment/Plan Last 24 Hours: My Active Orders 02/03/19 21:03 Shoulder 1V Lt [CR] Stat
--- NOTE | 2019-02-03 19:57 | CR ---
[id number] RAD/RAD Humerus Left 2V EXAM: 2 VIEWS LEFT SHOULDER. INDICATION: INJURY/PAIN COMPARISON: None. DISCUSSION: No definite fracture, dislocation or other acute osseous abnormality. Collar osteophytes are identified. IMPRESSION: 1. No definite acute osseous abnormalities. Alvin Christiansen DO 02/03/191955 Thank you for allowing us to participate in the care of your patient.
--- NOTE | 2019-02-04 08:17 | CR ---
[id number] RAD/RAD Shoulder Left 1V EXAM: SINGLE VIEW LEFT SHOULDER. INDICATION: FALL COMPARISON: None. DISCUSSION: Chronic appearing deformity of the proximal left humerus without definite acute fracture identified. No dislocation. IMPRESSION: 1. No definite acute osseous abnormalities. Alvin Christiansen DO 02/04/19 0816 Thank you for allowing us to participate in the care of your patient.
== END 2019-02-03 21:51 | disposition home or self-care (01) ==
LOC: VM.ED 18:48
DX: S49.92XA Unspecified injury of left shoulder and upper arm, initial encounter (principal); J45.909 Unspecified asthma, uncomplicated; G30.9 Alzheimer's disease, unspecified; F02.80 Dementia in other diseases classified elsewhere, unspecified severity, without behavioral disturbance, psychotic disturbance, mood disturbance, and anxiety; Z86.73 Personal history of transient ischemic attack (TIA), and cerebral infarction without residual deficits; Z88.5 Allergy status to narcotic agent; Z88.0 Allergy status to penicillin; Z79.82 Long term (current) use of aspirin; Z79.899 Other long term (current) drug therapy; W01.0XXA Fall on same level from slipping, tripping and stumbling without subsequent striking against object, initial encounter; Y93.89 Activity, other specified; Y92.89 Other specified places as the place of occurrence of the external cause
CPT/HCPCS: 73020-LT; 73060-LT; 99283-25; 99283-GF